=== PATIENT | male | born 1975 | race Two or more races ===

== ENCOUNTER 2024-06-08 16:13 | Inpatient (IN) | payer MEDICAID, SELFPAY ==
[2024-06-08 16:25] VITALS: BP 157/94; PULSE 107; RESP 16; TEMP 37.9; O2SAT 99; BMI 24.4
--- NOTE | 2024-06-08 16:32 | XR_ITS ---
Examination: CT abdomen and pelvis without contrast. Coronal 3-D reconstructions. Sagittal 2-D reconstructions. Date and time of exam:June 08, 2024 2036 hours Comparison March 27, 2015 INDICATION: Bilateral flank pain and dysuria beginning 2 days ago CTDI: vol (mGy): 6.30 DLP: (mGycm): 359 Technique: Axial images of the abdomen have been obtained, 3 mm slice thickness Intravenous contrast material has not been administered. Low dose protocols were performed. One or more of the following dose reduction techniques were used; automated exposure control, adjustment of the mA and/or KV according to patient size, use of iterative reconstruction technique. Findings: No focal liver or splenic lesions Gallbladder wall shows calcification No pancreatic or adrenal mass 1 to 3 mm lower pole left renal calculi Mild left hydronephrosis, bilateral perinephric stranding, wall thickening left ureter no ureteral calculi Normal appendix No bowel obstruction Diffuse mild thickening of the urinary bladder wall IMPRESSION: Findings most consistent with left pyelonephritis and cystitis
--- NOTE | 2024-06-08 16:32 | PD.EDRME ---
Rapid Medical Screening Exam RME Arrival date/time: 06/08/24 16:13 49-year-old male with no known medical history presents to the emergency room with a chief complaint of bilateral flank pain and dysuria x 2 days I have greeted and performed a focused initial assessment of this patient. A comprehensive ED assessment and evaluation of the patient, analysis of all test results, and completion of the medical decision making process will be conducted by additional ED providers. Chief Complaint: Back Pain/Injury Vital signs: Vital Signs Temperature 100.2 F 06/08/24 16:25 Pulse Rate 107 H 06/08/24 16:25 Respiratory Rate 16 06/08/24 16:25 Blood Pressure 157/94 H 06/08/24 16:25 Pulse Oximetry (%) 99 06/08/24 16:25 Oxygen Delivery Method Room Air 06/08/24 16:25 Vital signs reviewed by provider: Yes
[2024-06-08] MEDS: KETOROLAC INJ 60 MG/2 ML VIAL 30 MG IM (16:36)
[2024-06-08 16:54] LABS: Basophils # (Auto) 0.1 Thou/mm3 (0.0-0.2); Basophils % (Auto) 0 % (0-2.5); Eosinophils # (Auto) 0.1 Thou/mm3 (0.0-0.5); Eosinophils % (Auto) 0 % (0-10); Hematocrit 41.9 % (41.0-53.0); Hemoglobin 14.2 g/dL (13.5-16.0); Immature Granulocytes % (Auto) 1 % (0-0); Immature Granulocytes Auto 0.19 Thou/mm3 (0.00-0.00); Lymphocytes # (Auto) 3.8 Thou/mm3 (1.0-4.8); Lymphocytes % (Auto) 12 % (10-50); Mean Corpuscular HGB Conc 33.9 g/dl (31.0-37.0); Mean Corpuscular Hemoglobin 30.7 pg (25.0-35.0); Mean Corpuscular Volume 91 fL (80-100); Monocytes # (Auto) 2.3 Thou/mm3 (0.0-0.8); Monocytes % (Auto) 7 % (0-12); Neutrophils % (Auto) 80 % (37-80); Nucleated Red Blood Cell % 0 /100 WBC (0); Platelet Count 365 Thou/mm3 (140-440); RDW Standard Deviation 45.9 fL (35.1-43.9); Red Blood Count 4.62 Miln/mm3 (4.50-5.90); White Blood Count 32.5 Thou/mm3 (3.8-10.6)
[2024-06-08 17:09] LABS: Alanine Aminotransferase 14 U/L (10-49); Albumin, Serum 4.3 gm/dL (3.5-5.0); Albumin/Globulin Ratio 1.2 (1.2-2.2); Alkaline Phosphatase 126 U/L (46-116); Anion Gap 9 (7-16); Aspartate Amino Transferase 14 U/L (0-34); BUN/Creatinine Ratio 14 Ratio (12-20); Bilirubin,Total 0.7 mg/dL (0.3-1.2); Blood Urea Nitrogen 14 mg/dL (9-23); Calcium 9.1 mg/dL (8.3-10.6); Calcium (Corrected) 9.1 mg/dL (8.5-10.1); Carbon Dioxide 26.6 mMol/L (20.0-31.0); Chloride 98 mMol/L (98-107); Estimated Creatinine Clearance 90.3 mL/min (>60); Globulin 3.7 gm/dL (2.3-3.5); Glucose 130 mg/dL (74-106); Lipase 33 U/L (12-53); Osmolality,Calculated 270 (275-295); Potassium 3.6 mMol/L (3.4-5.1); Sodium 134 mMol/L (136-145); eGFR > 60 See Note
[2024-06-08 17:16] LABS: Collection Type, Urine Clean Catch; Squamous Epithelial Cell,Urine 0 /hpf (0-5)
[2024-06-08 17:25] LABS: Bacteria,Urine Rare; Bilirubin,Urine Negative (Negative); Blood,Urine 1+ (Negative); Clarity,Urine Turbid (Clear/Hazy); Color,Urine Yellow (Lt Yel-Yel); Glucose, Urine Negative (Negative); Ketones,Urine Negative (Negative); Leukocyte Esterase,Urine Positive (Negative); Nitrite,Urine Negative (Negative); Protein,Urine Trace (Neg - Trace); RBC,Urine 10 /hpf (0-3); Specific Gravity,Urine 1.018 (1.001-1.035); Urobilinogen,Urine Negative mg/dL (0.0-1.0); WBC,Urine 517 /hpf (0-5)
--- NOTE | 2024-06-08 18:14 | PD.EDABDPN ---
ED Abdominal Pain RME/HPI General Chief Complaint: Urogenital-Male Stated complaint: BILATERAL FLANK PAIN Time seen by provider: 06/08/24 18:13 Arrival date/time: 06/08/24 16:13 RME / HPI RME / HPI narrative: 06/08/24 16:13 49-year-old male with no known medical history presents to the emergency room with a chief complaint of bilateral flank pain and dysuria x 2 days I have greeted and performed a focused initial assessment of this patient. A comprehensive ED assessment and evaluation of the patient, analysis of all test results, and completion of the medical decision making process will be conducted by additional ED providers. This section includes all my notes and documentations, including HPI, PE, and ED course. Reji Dunlap MD HPI: 49-year-old male here with several days of severe left flank pain and dysuria. No hematuria. Concerned about obstructive kidney stones, frequent episodes in the past. No other medical history. No other complaints. ROS: All negative except as documented in HPI. Physical Exam: General: Alert and oriented. In severe pain. Eyes: Conjunctivae and lids clear. ENT: No nasal congestion. Neck: Supple. Heart: RRR. Lungs: No respiratory distress. Good air movement. No rhonchi, wheezing, rales. Abdomen: Soft and nontender. Normal bowel sounds. No distension. No rebound or guarding. Back: No CVA tenderness. Skin: Warm and dry. Neuro: Alert and oriented X 3. I reviewed all diagnostic test results. My interpretation of the chest x-ray is NAD. My review of the abdominal CT report is left pyelonephritis. Blood tests and urine tests remarkable for WBC 32.5, ESR 60, CRP > 10, and UTI. At this point, diagnoses include pyelonephritis and sepsis. Treatment here included IV fluid and Rocephin and Toradol and morphine. Some improvement noted. I discussed the case with our hospitalist. About the presentation and exam and diagnostics and treatments here. And need of further care in the hospital. Will accept the patient. Reji Dunlap MD Related Data Previous Rx's ?Medication ?Instructions ?Recorded Hydrocodone/Acetaminophen * (NORCO 1 tab PO Q6H PRN PAIN #28 tabs 03/27/15 7.5/325 *) Allergies Allergy/AdvReac Type Severity Reaction Status Date / Time No Known Allergies Allergy Verified 06/08/24 16:16 Course Quality Measures none Orders Category Date Time Status COVID-19 Screening Questionnaire NOW Care 06/08/24 21:37 Active Decision to Admit X1 Care 06/08/24 21:37 Active Saline [Insert IV] NOW Care 06/08/24 18:[address] abdomen pelvis wo con Stat Exams 06/08/24 16:32 Completed XR chest 1V portable Stat Exams 06/08/24 18:17 Completed Blood Culture (Lab) Stat Lab 06/08/24 18:28 Received CBC Stat Lab 06/08/24 16:47 Completed CMP [Comprehensive Metabolic Panel] Stat Lab 06/08/24 16:47 Completed CRP [C-Reactive Protein] Stat Lab 06/08/24 18:28 Completed ESR [Sed Rate (ESR)] Stat Lab 06/08/24 18:28 Completed Lactate (Lactic Acid) Stat Lab 06/08/24 18:28 Completed Lipase Stat Lab 06/08/24 16:47 Completed Magnesium Stat Lab 06/08/24 18:28 Completed Procalcitonin Stat Lab 06/08/24 18:28 Completed UA [Urinalysis] Stat Lab 06/08/24 16:45 Completed Urine Culture Stat Lab 06/08/24 16:45 Received Urine Culture Stat Lab 06/08/24 18:16 Ordered Ketorolac Inj [Toradol Inj] Med 06/08/24 16:32 Discontinued 30 mg IM X1 ONE Ketorolac Inj [Toradol Inj] Med 06/08/24 18:15 Discontinued 30 mg IVP X1 ONE Morphine Inj Med 06/08/24 18:15 Discontinued 4 mg IVP X1 ONE Sodium Chloride 0.9% 1000 ml [Ns] 1,000 ml Med 06/08/24 18:15 Discontinued IV 999 mls/hr Sodium Chloride 0.9% 1000 ml [Ns] 1,000 ml Med 06/08/24 18:15 Discontinued IV 999 mls/hr Sodium Chloride 0.9% 1000 ml [Ns] 1,000 ml Med 06/08/24 18:15 Discontinued IV 999 mls/hr cefTRIAXone [Rocephin] 1,000 mg Med 06/08/24 18:15 Discontinued SODIUM CHLORIDE 0.9% (Popper) [Ns 0.9% (P)] 50 ml IV X1 Vital Signs Vital signs: Vital Signs Temperature 100.2 F 06/08/24 16:25 Pulse Rate 107 H 06/08/24 16:25 Respiratory Rate 16 06/08/24 16:25 Blood Pressure 157/94 H 06/08/24 16:25 Pulse Oximetry (%) 99 06/08/24 16:25 Oxygen Delivery Method Room Air 06/08/24 16:25 Abdominal Pain MDM Patient data External records reviewed:: [facility] previous records Clinical information provided by:: patient Social determinants that could affect healthcare access:: none Patient has the following chronic illnesses:: Frequent obstructive kidney stones How is presenting disease/condition affected by chronic disease/condition?: exacerbated by Evaluation data The following diagnostics were reviewed and interpreted by me:: lab results and radiology exam(s) Lab and/or radiology exams considered but not ordered:: None Interpretation Summary: Pyelonephritis and sepsis Medications / Prescriptions Medications or Prescriptions considered but not ordered:: None Medication administrations:: Medication Administration History Discontinued Medications Sodium Chloride (Ns) 1,000 mls @ 999 mls/hr IV .Q1H1M ONE Stop: 06/08/24 19:15 Last Infusion: 06/08/24 20:40 Dose: Infused Documented By: Admin: 06/08/24 19:22 Dose: 999 mls/hr Documented By: TRAN Sodium Chloride (Ns) 1,000 mls @ 999 mls/hr IV .Q1H1M ONE Stop: 06/08/24 19:15 Last Infusion: 06/08/24 20:40 Dose: Infused Documented By: Admin: 06/08/24 19:24 Dose: 999 mls/hr Documented By: TRAN Ceftriaxone Sodium 1,000 mg/ (Sodium Chloride) 50 mls @ 100 mls/hr IV X1 ONE Stop: 06/08/24 18:44 Last Infusion: 06/08/24 20:00 Dose: Infused Documented By: Admin: 06/08/24 19:23 Dose: 100 mls/hr Documented By: TRAN Sodium Chloride (Ns) 1,000 mls @ 999 mls/hr IV .Q1H1M ONE Stop: 06/08/24 19:15 Last Infusion: 06/08/24 20:40 Dose: Infused Documented By: Admin: 06/08/24 19:25 Dose: 999 mls/hr Documented By: TRAN Ketorolac Tromethamine (Ketorolac Inj 60 Mg/2 Ml Vial) 30 mg IM X1 ONE Stop: 06/08/24 16:33 Last Admin: 06/08/24 16:36 Dose: 30 mg Documented By: ZACHERY Ketorolac Tromethamine (Ketorolac Inj 30 Mg/Ml Vial) 30 mg IVP X1 ONE Stop: 06/08/24 18:16 Last Admin: 06/08/24 19:24 Dose: 30 mg Documented By: TRAN Morphine Sulfate (Morphine Sulf Inj 10 Mg/Ml Vial) 4 mg IVP X1 ONE Stop: 06/08/24 18:16 Last Admin: 06/08/24 19:24 Dose: 4 mg Documented By: TRAN IV fluid and Toradol and morphine and Rocephin Consultations Consultation(s) initiated? (list below): No Diagnosis Differential diagnosis abdominal pain: acute appendicitis, calculus of kidney, constipation, diverticulitis, gastroenteritis, pancreatitis and small bowel obstruction Most likely diagnosis given after review of the tests above:: Pyelonephritis and sepsis Admission Indicated Admission indicated?: indicated Explain why admission is indicated or not indicated:: Pyelonephritis and sepsis Admission Request Was there a request for admission?: Yes Admission Attestation Admission request attestation: Discussed case with Hospitalist service regarding admission. Discussed patients ED course, exam findings, labs, and radiology results. The Hospitalist [agrees] to accept the patient for admission. Disposition Plan Disposition Plan: Admit Discharge Plan Plan Patient Disposition: Admit Acute Care w/in Hospital Prescriptions/Referrals Prescriptions/Med Rec: No Action Hydrocodone/Acetaminophen * (NORCO 7.5/325 *) 1 TAB tablet 1 tab PO Q6H PRN (Reason: PAIN) Qty: 28 0RF Referrals: No Primary/Family,Physician [Primary Care Provider] - In 1 week Problem List Clinical Impression: Acute pyelonephritis, Sepsis Patient/Caregiver Discharge Instructions Print Language: Persian Stand Alone Forms: Laura Award Info., Patient Portal Info Letter
--- NOTE | 2024-06-08 18:17 | XR_ITS ---
Examination: AP chest single view TECHNIQUE: AP portable upright chest single view Exam date and time: June 08, 2024 1829 hours INDICATIONS: Shortness of breath today. FINDINGS: Normal heart size. Lungs are clear. The osseous structures are intact IMPRESSION: No active disease
[2024-06-08 18:25] VITALS: BP 140/88; PULSE 94; RESP 18; TEMP 37.2; O2SAT 97
[2024-06-08 18:35] LABS: Lactate (Lactic Acid) 1.3 mMol/L (0.4-2.0)
[2024-06-08 18:43] LABS: Sed Rate (ESR) 60 mm/hr (0-15)
[2024-06-08] MEDS: SODIUM CHLORIDE 0.9% 1000 ML 1,000 ML 999 ML IV ×3 (19:22→19:25)
[2024-06-08] MEDS: cefTRIAXone 1,000 MG in SODIUM CHLORIDE 0.9% (Popper) 50 ML 100 MG IV (19:23)
[2024-06-08] MEDS: MORPHINE SULF INJ 10 MG/ML VIAL 4 MG IVP (19:24)
[2024-06-08] MEDS: KETOROLAC INJ 30 MG/ML VIAL IVP (19:24)
[2024-06-08 19:32] LABS: C-Reactive Protein > 10.0 mg/dL (0.0-0.9)
[2024-06-08 19:37] VITALS: BP 142/85; PULSE 84; RESP 16; O2SAT 98
[2024-06-08 19:56] LABS: Procalcitonin 0.24 ng/ml (0.0-0.49)
[2024-06-08 21:44] VITALS: BP 149/83; PULSE 89; RESP 18; TEMP 37.3; O2SAT 99
--- NOTE | 2024-06-08 22:49 | ESHP_ITS ---
Documentation for date of: 06/08/24 [facility] History of Present Illness History of present illness: The patient is a 49-year-old male with significant past medical history of renal stones and recent urinary tract infection who was treated with ciprofloxacin for 10 days course, presented to ED on 06/08/2024 with chief complaint of bilateral flank pain for 1 days. He reported that his right flank pain is radiating towards up to his inner thigh. Around 3 weeks back, he was admitted to [facility] and was found to have bilateral renal stones. He completed his 10 days course of ciprofloxacin, and continued to drink around 3 to 4 L of water daily. He admitted mild headache, and chills but denied any fever, nausea or vomiting, chest pain, SOB, abdominal pain, any changes in bowel habit or leg swelling. In the ED his vitals were significant for blood pressure 157/94, pulse 107, white count 32.5, ESR 60, sodium 134, blood sugar 130, CRP greater than 10.0, Pro-Jin 0.24, UA revealed turbid urine, 1+ blood, leukocyte esterase positive, RBC 10 and WBC 517 with rare urine bacteria. Chest x-ray revealed no active disease, abdomen/pelvis CT revealed 1 to 3 mm lower pole left renal calculi, mild left hydronephrosis, bilateral perinephric stranding, findings consistent with left pyelonephritis and cystitis. 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 Review of Systems Review of Systems Systems Reviewed: All systems reviewed, normal except as documented Exam Vital Signs Temp Pulse Resp BP Pulse Ox O2 Del Method 99.2 F 89 18 149/83 H 99 Room Air 06/08/24 21:44 06/08/24 21:44 06/08/24 21:44 06/08/24 21:44 06/08/24 21:44 06/08/24 21:44 Narrative Exam General: No acute distress, Alert and Oriented x 3 HEENT: Moist mucous membranes, oropharynx clear Neck: Supple, No masses, No JVD CVS: S1S2 Regular rate and rhythm, No murmurs, rubs or gallops Lungs: Clear to auscultation with no accessory use, no wheeze no rhonchi Abd: Soft, NT/ND, +BS, no organomegaly, bilateral renal angle tenderness present Ext: No edema, warm and well perfused Skin: No rash Psych: Appropriate mood and affect Results: Labs 06/08/24 16:47 06/08/24 16:47 Labs: Short CBC 06/08/24 Range/Units 16:47 WBC 32.5 H (3.8-10.6) Thou/mm3 Hgb 14.2 (13.5-16.0) g/dL Hct 41.9 (41.0-53.0) % Plt Count 365 (140-440) Thou/mm3 BMP 06/08/24 16:47 Sodium 134 L Potassium 3.6 Chloride 98 Carbon Dioxide 26.6 BUN 14 Creatinine 1.0 Glucose 130 H Calcium 9.1 Liver Function 06/08/24 Range/Units 16:47 Total Bilirubin 0.7 (0.3-1.2) mg/dL AST 14 (0-34) U/L ALT 14 (10-49) U/L Alkaline Phosphatase 126 H (46-116) U/L Albumin 4.3 (3.5-5.0) gm/dL Urine 06/08/24 Range/Units 16:45 Urine Color Yellow (Lt Yel-Yel) Urine Clarity Turbid A (Clear/Hazy) Urine pH 6.0 (5.0-7.0) Ur Specific [place] 1.018 (1.001-1.035) Urine Protein Trace (Neg - Trace) Urine Glucose (UA) Negative (Negative) Quality Measures Quality Measures none Medications Home Medications and Allergies Allergies Allergy/AdvReac Type Severity Reaction Status Date / Time No Known Allergies Allergy Verified 06/08/24 16:16 Visit Medications Acetaminophen (Acetaminophen 325 Mg Tablet) 650 mg PO Q6H PRN PRN Reason: Fever >101.5 Stop: 07/08/24 22:38 Hydrocodone Bitart/Acetaminophen (Hydrocodone/Apap 5/325 Tablet) 1 tab PO Q4HR PRN PRN Reason: PAIN SCALE 4-6 (Moderate Stop: 06/13/24 22:38 Enoxaparin Sodium (Enoxaparin Sod Inj 40 Mg/0.4 Ml Syringe) 40 mg SC QDAY [facility] Stop: 06/23/24 08:59 Hydromorphone HCl (Hydromorphone Inj 2 Mg/Ml Vial) 0.5 mg IVP Q4H PRN PRN Reason: PAIN SCALE 7-10 (Severe Stop: 06/13/24 22:38 Sodium Chloride (Ns) 1,000 mls @ 75 mls/hr IV .[id number] AMADO Stop: 07/08/24 22:44 Ceftriaxone Sodium/Dextrose (Rocephin/D5w 1gm Iv Premix) 50 mls @ 100 mls/hr IV QDAY [facility] Stop: 06/15/24 22:46 Discontinued Medications Sodium Chloride (Ns) 1,000 mls @ 999 mls/hr IV .Q1H1M ONE Stop: 06/08/24 19:15 Last Infusion: 06/08/24 20:40 Dose: Infused Sodium Chloride (Ns) 1,000 mls @ 999 mls/hr IV .Q1H1M ONE Stop: 06/08/24 19:15 Last Infusion: 06/08/24 20:40 Dose: Infused Ceftriaxone Sodium 1,000 mg/ (Sodium Chloride) 50 mls @ 100 mls/hr IV X1 ONE Stop: 06/08/24 18:44 Last Infusion: 06/08/24 20:00 Dose: Infused Sodium Chloride (Ns) 1,000 mls @ 999 mls/hr IV .Q1H1M ONE Stop: 06/08/24 19:15 Last Infusion: 06/08/24 20:40 Dose: Infused Ketorolac Tromethamine (Ketorolac Inj 60 Mg/2 Ml Vial) 30 mg IM X1 ONE Stop: 06/08/24 16:33 Last Admin: 06/08/24 16:36 Dose: 30 mg Ketorolac Tromethamine (Ketorolac Inj 30 Mg/Ml Vial) 30 mg IVP X1 ONE Stop: 06/08/24 18:16 Last Admin: 06/08/24 19:24 Dose: 30 mg Morphine Sulfate (Morphine Sulf Inj 10 Mg/Ml Vial) 4 mg IVP X1 ONE Stop: 06/08/24 18:16 Last Admin: 06/08/24 19:24 Dose: 4 mg Assessment & Plan Plan The patient is a 49-year-old male with significant past medical history of renal stones and recent urinary tract infection who was treated with ciprofloxacin for 10 days course, presented to ED on 06/08/2024 with chief complaint of bilateral flank pain for 1 days and was admitted to [facility] telemetry unit for further management of sepsis secondary to complicated UTI. #Sepsis secondary to complicated UTI 2/2 #Left pyelonephritis and #Cystitis #Left renal calculi Met 2/4 SIRS criteria with tachycardia and elevated white count Patient presented with chief complaint of bilateral flank pain for 1 day, right flank pain was radiating towards his inner right thigh. Around 3 weeks back, he was admitted to [facility] and was found to have bilateral renal stones. He completed his 10 days course of ciprofloxacin, and continued to drink around 3 to 4 L of water daily. pulse 107, white count 32.5, ESR 60, sodium 134, blood sugar 130, CRP greater than 10.0, Pro-Jin 0.24, UA revealed turbid urine, 1+ blood, leukocyte esterase positive, RBC 10 and WBC 517 with rare urine bacteria. Chest x-ray revealed no active disease, abdomen/pelvis CT revealed 1 to 3 mm lower pole left renal calculi, mild left hydronephrosis, bilateral perinephric stranding, findings consistent with left pyelonephritis and cystitis. In the ED patient received 3 L of IV bolus fluid normal saline, received ketorolac 30 Mg IM x 1 and 30 Mg IV x 1, morphine 4 Mg IV x 1 and ceftriaxone 1 g IV x 1 -Continue with ceftriaxone 1 g daily -Pain management -Blood and urine culture ordered -Daily a.m. labs for CBC, CMP and electrolytes -Tamsulosin 0.4 Mg daily p.o. - Monitor closely #Mild hypovolemic hypoosmolar hyponatremia Secondary to sepsis Patient presented with sodium level of 134 and osmolality 270 Patient received a liter of IV bolus fluid normal saline, and is on maintenance IV normal saline - Continue with maintenance IV normal saline 75 cc/h - A.m. labs for sodium Health maintenance: Dispo: Patient admitted to med telemetry unit for further management of sepsis secondary to complicated UTI secondary to left pyelonephritis and cystitis DVT prophylaxis: Enoxaparin subcu daily Diet: Regular diet CODE STATUS: Full code The patient's management plan was discussed with my attending physician MD Juan Roberts MD, PGY2 Attending Provider Attestation/Addendum 49-year-old male patient with kidney stones was admitted for bilateral flank pain. Patient had recent use of antibiotic for UTI. He appears to have pyelonephritis. Patient will be admitted for IV antibiotic treatment. Will need to check culture results. The patient has nonobstructing kidney stones.
[2024-06-08] MEDS: SODIUM CHLORIDE 0.9% 1000 ML 1,000 ML 75 ML IV (22:50)
[2024-06-08 23:49] VITALS: BMI 25.8
[2024-06-09] VITALS (13 sets, daily range): BP systolic 103–140; BP diastolic 62–75; PULSE 90–113; RESP 18–20; TEMP 36.3–39; O2SAT 92–97
[2024-06-09] MEDS: TAMSULOSIN HCL 0.4 MG CAPSULE PO ×2 (00:19→08:34)
[2024-06-09] MEDS: ACETAMINOPHEN 325 MG TABLET 650 MG PO ×3 (04:25→20:40)
[2024-06-09 05:05] LABS: Basophils # (Auto) 0.1 Thou/mm3 (0.0-0.2); Basophils % (Auto) 0 % (0-2.5); Eosinophils % (Auto) 0 % (0-10); Immature Granulocytes % (Auto) 1 % (0-0); Immature Granulocytes Auto 0.21 Thou/mm3 (0.00-0.00); Lymphocytes # (Auto) 2.5 Thou/mm3 (1.0-4.8); Lymphocytes % (Auto) 7 % (10-50); Mean Corpuscular HGB Conc 33.3 g/dl (31.0-37.0); Mean Corpuscular Hemoglobin 30.5 pg (25.0-35.0); Mean Corpuscular Volume 92 fL (80-100); Monocytes # (Auto) 2.5 Thou/mm3 (0.0-0.8); Monocytes % (Auto) 7 % (0-12); Neutrophils # (Auto) 30.3 Thou/mm3 (1.8-7.7); Neutrophils % (Auto) 85 % (37-80); Nucleated Red Blood Cell % 0 /100 WBC (0); Platelet Count 319 Thou/mm3 (140-440); RDW Standard Deviation 45.8 fL (35.1-43.9); Red Blood Count 3.93 Miln/mm3 (4.50-5.90)
[2024-06-09 05:14] LABS: White Blood Count 35.6 Thou/mm3 (3.8-10.6)
[2024-06-09] MEDS: MEROPENEM INJ 1,000 MG in SODIUM CHLORIDE 0.9% (Popper) 50 ML 100 MG IV ×3 (05:28→21:55)
[2024-06-09 05:43] LABS: Alanine Aminotransferase 31 U/L (10-49); Albumin, Serum 3.5 gm/dL (3.5-5.0); Albumin/Globulin Ratio 1.1 (1.2-2.2); Alkaline Phosphatase 111 U/L (46-116); Anion Gap 10 (7-16); Aspartate Amino Transferase 29 U/L (0-34); BUN/Creatinine Ratio 13 Ratio (12-20); Bilirubin,Total 0.8 mg/dL (0.3-1.2); Blood Urea Nitrogen 13 mg/dL (9-23); Calcium 7.9 mg/dL (8.3-10.6); Calcium (Corrected) 8.3 mg/dL (8.5-10.1); Carbon Dioxide 21.8 mMol/L (20.0-31.0); Cardiac Risk Estimate 3.4 RATIO (4.0-6.7); Chloride 102 mMol/L (98-107); Cholesterol 141 mg/dL (132-200); Estimated Creatinine Clearance 90.3 mL/min (>60); Globulin 3.1 gm/dL (2.3-3.5); Glucose 117 mg/dL (74-106); HDL Cholesterol 42 mg/dL (40-60); LDL Cholesterol,Calculated 85 mg/dL (0-130); Magnesium 1.6 mg/dL (1.6-2.6); Osmolality,Calculated 269 (275-295); Phosphorous 1.2 mg/dL (2.4-5.1); Potassium 3.9 mMol/L (3.4-5.1); Sodium 134 mMol/L (136-145); Thyroid Stimulating Hormone 0.53 uIU/mL (0.55-4.78); Total Protein 6.6 gm/dL (5.7-8.2); Triglycerides 71 mg/dL (30-150); eGFR > 60 See Note
[2024-06-09] MEDS: ENOXAPARIN SOD INJ 40 MG/0.4 ML SYRINGE SC (08:34)
[2024-06-09 09:00] LABS: Path Review Blood Smear Sent to Pathologist
--- NOTE | 2024-06-09 09:56 | PC.SS ---
Follow up note: Pt is on IV antibiotic for Sepsis, UTI.
--- NOTE | 2024-06-09 10:36 | PD.IDPROG ---
Subjective Subjective Interval history: asked to see for pos urine after rx for a day or so. now on merrem. bc pending. urine pending. ua abnormal but not initially tested. has known stones. urology assistance not usually available in most facilities. Exam Vital Signs Temp Pulse Resp BP Pulse Ox O2 Del Method 97.4 F 90 18 103/62 97 Room Air 06/09/24 08:00 06/09/24 08:00 06/09/24 08:00 06/09/24 08:00 06/09/24 08:00 06/09/24 08:00 Narrative Exam heavily tatooed man. looks ill. germ is not S to quinolones but that is what he got. I called [facility] and note that his test was finalized there on 05/28. he does not recall seeing me. Objective - Internal Medicine Labs 06/09/24 04:42 06/09/24 04:42 Labs: Laboratory Results - last 24 hr 06/08/24 06/08/24 06/08/24 16:45 16:47 18:28 WBC 32.5 H RBC 4.62 Hgb 14.2 Hct 41.9 MCV 91 MCH 30.7 MCHC 33.9 RDW Std Deviation 45.9 H Plt Count 365 Neut % (Auto) 80 Lymph % (Auto) 12 [place] % (Auto) 7 Eos % (Auto) 0 Baso % (Auto) 0 Neut # (Auto) 26.0 H Lymph # (Auto) 3.8 [place] # (Auto) 2.3 H Eos # (Auto) 0.1 Baso # (Auto) 0.1 Immature Gran # (Auto) 0.19 H Absolute Nucleated RBC 0.00 Immature Gran % 1 H Nucleated RBC % 0 Smear Path Review ESR 60 H Sodium 134 L Potassium 3.6 Chloride 98 Carbon Dioxide 26.6 Anion Gap 9 BUN 14 Creatinine 1.0 Estim Creat Clear Calc 90.3 eGFR > 60 BUN/Creatinine Ratio 14 Glucose 130 H Calculated Osmolality 270 L Lactic Acid 1.3 Calcium 9.1 Corrected Calcium 9.1 Phosphorus Magnesium 2.0 Total Bilirubin 0.7 AST 14 ALT 14 Alkaline Phosphatase 126 H C-Reactive Prot, Quant > 10.0 H Total Protein 8.0 Albumin 4.3 Globulin 3.7 H Albumin/Globulin Ratio 1.2 Triglycerides Cholesterol LDL Cholesterol, Calc HDL Cholesterol Cholesterol/HDL Ratio Lipase 33 Procalcitonin 0.24 TSH Ur Collection Type Clean Catch Urine Color Yellow Urine Clarity Turbid A Urine pH 6.0 Ur Specific [place] 1.018 Urine Protein Trace Urine Glucose (UA) Negative Urine Ketones Negative Urine Blood 1+ A Urine Nitrite Negative Urine Bilirubin Negative Urine Urobilinogen (Auto) Negative Ur Leukocyte Esterase Positive Urine RBC 10 H Urine WBC 517 H Ur Squamous Epith Cells 0 Urine Bacteria Rare 06/09/24 04:42 WBC 35.6 H* RBC 3.93 L Hgb 12.0 L D Hct 36.0 L MCV 92 MCH 30.5 MCHC 33.3 RDW Std Deviation 45.8 H Plt Count 319 D Neut % (Auto) 85 H Lymph % (Auto) 7 L [place] % (Auto) 7 Eos % (Auto) 0 Baso % (Auto) 0 Neut # (Auto) 30.3 H Lymph # (Auto) 2.5 [place] # (Auto) 2.5 H Eos # (Auto) 0.0 Baso # (Auto) 0.1 Immature Gran # (Auto) 0.21 H Absolute Nucleated RBC 0.00 Immature Gran % 1 H Nucleated RBC % 0 Smear Path Review Sent to Pathologist ESR Sodium 134 L Potassium 3.9 Chloride 102 Carbon Dioxide 21.8 Anion Gap 10 BUN 13 Creatinine 1.0 Estim Creat Clear Calc 90.3 eGFR > 60 BUN/Creatinine Ratio 13 Glucose 117 H Calculated Osmolality 269 L Lactic Acid Calcium 7.9 L Corrected Calcium 8.3 L Phosphorus 1.2 L Magnesium 1.6 Total Bilirubin 0.8 AST 29 ALT 31 Alkaline Phosphatase 111 C-Reactive Prot, Quant Total Protein 6.6 Albumin 3.5 D Globulin 3.1 Albumin/Globulin Ratio 1.1 L Triglycerides 71 Cholesterol 141 LDL Cholesterol, Calc 85 HDL Cholesterol 42 Cholesterol/HDL Ratio 3.4 L Lipase Procalcitonin TSH 0.53 L Ur Collection Type Urine Color Urine Clarity Urine pH Ur Specific [place] Urine Protein Urine Glucose (UA) Urine Ketones Urine Blood Urine Nitrite Urine Bilirubin Urine Urobilinogen (Auto) Ur Leukocyte Esterase Urine RBC Urine WBC Ur Squamous Epith Cells Urine Bacteria Assessment & Plan A&P Narrative uti with fever and sx after recent rx at . hx of prior R germ in urine known renal stone disease meth use hx await cx. note that urine may be neg if pre treated. will f/u on sun Time Spent With Patient Time: Total time spent is greater than 50% in coordination of care (as documented) at patient's floor/unit and/or counseling patient:
[2024-06-09] MEDS: SODIUM CHLORIDE 0.9% 1000 ML 1,000 ML 75 ML IV (10:56)
--- NOTE | 2024-06-09 12:58 | ESCONSULT_ITS ---
RE: RENEE ALFARO : 1975 DATE OF CONSULTATION: 06/09/2024 REASON FOR CONSULTATION: UTI. HISTORY OF PRESENT ILLNESS: The patient is an unfortunate 49-year-old man. He was recently released from the [facility] on quinolone for an ESBL in the urine that turned out to be resistant to quinolones. It was finalized on approximately 05/28/2024. He was discharged from the hospital apparently prior to that. He apparently finished the Cipro and reports that he did not get that much better on it and there was no chronic treatment offered. His blood cultures are negative, and I called the lab to verify that. Surgical history is none. He has known about the kidney stones for a couple of months and imaging shows presence of known kidney stones. He is on meropenem, which is part of the reason for the consultation. White counts are rather high. There is mild left hydronephrosis with a stone in theleft lower pole, left renal calculus noted. The patient reportedly saw a urologist at [facility], he does no know the detail, so he cannot recall the name of the urologist. ALLERGIES: NONE NOTED. IMMUNIZATIONS: Notable for; tetanus is unknown. fluc status also unknown and uncertain. He has not had a COVID vaccine or pneumococcal vaccine. FAMILY HISTORY: Positive for mother having known stones, hypertension, and diabetes. SOCIAL HISTORY: He lives with his female friend. He uses occasional meth. 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 He is not working currently. He does smoke regularly also. He uses occasional alcohol as well. His last use of meth was about a week ago. PHYSICAL EXAMINATION: GENERAL: The patient is ill-appearing. He is in no distress, but he is uncomfortable. He is heavily tattooed. HEENT: Benign. HEART: Benign. LUNGS: Benign. ABDOMEN: Benign. ASSESSMENT: 1. Urinary tract infection, treated with quinolone, reportedly resistance to quinolone was reportedly identified at [facility]. I had not seen him before. I am not sure if Dr. Hubbard saw him or not. 2. Known kidney stone disease. RECOMMENDATIONS: 1. The patient probably should stay on meropenem for now. 2. We will look at alternatives once we have more sensitivities available. 3. If his blood cultures are positive, we may have to give him something systemically for a period of time, but if we have sensitivity to an oral agent, we may look at that on a long-term basis, preventively. DT: 11:15:03 TT: 11:57:00 Ref: [id number] - TID: [id number] MTDD
--- NOTE | 2024-06-09 13:10 | PC.NURSE ---
Patients temperature 97.9. Will continue to monitor
--- NOTE | 2024-06-09 15:40 | PD.RESPRO ---
Documentation for date of: 06/09/24 Subjective Subjective Interval history: Patient examined at bedside. Still has some lower back pain but improved from yesterday. No nausea, no blood in urine. Dr Child was consulted. Recommendations to continue with meropenem due to resistance to fluoroquinolone reported at [facility]. Leukocytosis 35, sodium 134, potassium 3.9, phosphate 1.2. Repleted electrolytes as needed. Urine cultures and blood cultures pending. Exam Vital Signs Temp Pulse Resp BP Pulse Ox O2 Del Method 97.4 F 95 18 140/75 H 97 Room Air 06/09/24 15:36 06/09/24 15:36 06/09/24 15:36 06/09/24 15:36 06/09/24 15:36 06/09/24 12:00 Narrative Exam General: No acute distress, Alert and Oriented x 3 HEENT: Moist mucous membranes, oropharynx clear Neck: Supple, No masses, No JVD CVS: S1S2 Regular rate and rhythm, No murmurs, rubs or gallops Lungs: Clear to auscultation with no accessory use, no wheeze no rhonchi Abd: Soft, NT/ND, +BS, no organomegaly, bilateral CVA tenderness present Ext: No edema, warm and well perfused Skin: No rash, tattoos on arm Psych: Appropriate mood and affect Objective Labs 06/10/24 04:20 06/10/24 04:20 Labs: Laboratory Results - last 24 hr 06/08/24 06/08/24 06/08/24 16:45 16:47 18:28 WBC 32.5 H RBC 4.62 Hgb 14.2 Hct 41.9 MCV 91 MCH 30.7 MCHC 33.9 RDW Std Deviation 45.9 H Plt Count 365 Neut % (Auto) 80 Lymph % (Auto) 12 [place] % (Auto) 7 Eos % (Auto) 0 Baso % (Auto) 0 Neut # (Auto) 26.0 H Lymph # (Auto) 3.8 [place] # (Auto) 2.3 H Eos # (Auto) 0.1 Baso # (Auto) 0.1 Immature Gran # (Auto) 0.19 H Absolute Nucleated RBC 0.00 Immature Gran % 1 H Nucleated RBC % 0 Smear Path Review ESR 60 H Sodium 134 L Potassium 3.6 Chloride 98 Carbon Dioxide 26.6 Anion Gap 9 BUN 14 Creatinine 1.0 Estim Creat Clear Calc 90.3 eGFR > 60 BUN/Creatinine Ratio 14 Glucose 130 H Calculated Osmolality 270 L Lactic Acid 1.3 Calcium 9.1 Corrected Calcium 9.1 Phosphorus Magnesium 2.0 Total Bilirubin 0.7 AST 14 ALT 14 Alkaline Phosphatase 126 H C-Reactive Prot, Quant > 10.0 H Total Protein 8.0 Albumin 4.3 Globulin 3.7 H Albumin/Globulin Ratio 1.2 Triglycerides Cholesterol LDL Cholesterol, Calc HDL Cholesterol Cholesterol/HDL Ratio Lipase 33 Procalcitonin 0.24 TSH Ur Collection Type Clean Catch Urine Color Yellow Urine Clarity Turbid A Urine pH 6.0 Ur Specific [place] 1.018 Urine Protein Trace Urine Glucose (UA) Negative Urine Ketones Negative Urine Blood 1+ A Urine Nitrite Negative Urine Bilirubin Negative Urine Urobilinogen (Auto) Negative Ur Leukocyte Esterase Positive Urine RBC 10 H Urine WBC 517 H Ur Squamous Epith Cells 0 Urine Bacteria Rare 06/09/24 04:42 WBC 35.6 H* RBC 3.93 L Hgb 12.0 L D Hct 36.0 L MCV 92 MCH 30.5 MCHC 33.3 RDW Std Deviation 45.8 H Plt Count 319 D Neut % (Auto) 85 H Lymph % (Auto) 7 L [place] % (Auto) 7 Eos % (Auto) 0 Baso % (Auto) 0 Neut # (Auto) 30.3 H Lymph # (Auto) 2.5 [place] # (Auto) 2.5 H Eos # (Auto) 0.0 Baso # (Auto) 0.1 Immature Gran # (Auto) 0.21 H Absolute Nucleated RBC 0.00 Immature Gran % 1 H Nucleated RBC % 0 Smear Path Review Sent to Pathologist ESR Sodium 134 L Potassium 3.9 Chloride 102 Carbon Dioxide 21.8 Anion Gap 10 BUN 13 Creatinine 1.0 Estim Creat Clear Calc 90.3 eGFR > 60 BUN/Creatinine Ratio 13 Glucose 117 H Calculated Osmolality 269 L Lactic Acid Calcium 7.9 L Corrected Calcium 8.3 L Phosphorus 1.2 L Magnesium 1.6 Total Bilirubin 0.8 AST 29 ALT 31 Alkaline Phosphatase 111 C-Reactive Prot, Quant Total Protein 6.6 Albumin 3.5 D Globulin 3.1 Albumin/Globulin Ratio 1.1 L Triglycerides 71 Cholesterol 141 LDL Cholesterol, Calc 85 HDL Cholesterol 42 Cholesterol/HDL Ratio 3.4 L Lipase Procalcitonin TSH 0.53 L Ur Collection Type Urine Color Urine Clarity Urine pH Ur Specific [place] Urine Protein Urine Glucose (UA) Urine Ketones Urine Blood Urine Nitrite Urine Bilirubin Urine Urobilinogen (Auto) Ur Leukocyte Esterase Urine RBC Urine WBC Ur Squamous Epith Cells Urine Bacteria Quality Measures Quality Measures none Assessment & Plan Assessment Current Active Medications: Generic Name Dose Route Start Last Admin Trade Name Freq PRN Reason Stop Dose Admin Acetaminophen 650 mg 06/09/24 11:02 06/09/24 11:15 Acetaminophen 325 Mg Tablet PO 07/08/24 22:38 650 mg Q6H PRN Administration Fever 100.4 F or above Hydrocodone Bitart/Acetaminophen 1 tab 06/08/24 22:39 Hydrocodone/Apap 5/325 Tablet PO 06/13/24 22:38 Q4HR PRN PAIN SCALE 4-6 (Moderate Enoxaparin Sodium 40 mg 06/09/24 09:00 06/09/24 08:34 Enoxaparin Sod Inj 40 Mg/0.4 Ml Syringe SC 06/23/24 08:59 40 mg QDAY AMADO Administration Hydromorphone HCl 0.5 mg 06/08/24 22:39 Hydromorphone Inj 2 Mg/Ml Vial IVP 06/13/24 22:38 Q4H PRN PAIN SCALE 7-10 (Severe Sodium Chloride 1,000 mls @ 75 mls/hr 06/08/24 22:45 06/09/24 10:56 Ns IV 07/08/24 22:44 75 mls/hr .[id number] AMADO Administration Meropenem 1,000 mg/ Sodium 50 mls @ 100 mls/hr 06/09/24 06:00 06/09/24 13:11 Chloride IV 06/16/24 05:59 100 mls/hr Q8HR AMADO Administration Tamsulosin HCl 0.4 mg 06/09/24 09:00 06/09/24 08:34 Tamsulosin Hcl 0.4 Mg Capsule PO 07/09/24 08:59 0.4 mg QDAY AMADO Administration Plan The patient is a 49-year-old male with significant past medical history of renal stones and recent urinary tract infection who was treated with ciprofloxacin for 10 days course, presented to ED on 06/08/2024 with chief complaint of bilateral flank pain for 1 days and was admitted to [facility] telemetry unit for further management of sepsis secondary to complicated UTI. #Complicated UTI #Left pyelonephritis #Left renal calculi Patient came in and found to have 2 or more SIRS criteria and was evaluated for sepsis. However, based upon further work-up, sepsis was ruled out as he showed no evidence of end organ damage. Met 2/4 SIRS criteria with tachycardia and leukocytosis 35. ESR 60, CRP greater than 10.0, Pro-Jin 0.24, UA revealed turbid urine, 1+ blood, leukocyte esterase positive, RBC 10 and WBC 517 with rare urine bacteria. Chest x-ray revealed no active disease, abdomen/pelvis CT revealed 1 to 3 mm lower pole left renal calculi, mild left hydronephrosis, bilateral perinephric stranding, findings consistent with left pyelonephritis and cystitis. ID Dr. Child consulted -Continue with meropenam due to resistance to fluoroquinolone reported at [facility]. -Pain management -Blood and urine culture pending -Tamsulosin 0.4 Mg daily p.o. #Electrolyte abnormalities # Hypophosphatemia -Replete as needed Health maintenance: Dispo: meropenam for left pyelonephritis DVT prophylaxis: Enoxaparin subcu daily Diet: Regular diet CODE STATUS: Full code The patient's management plan was discussed with my attending physician Dr. Young. Deirdre Mora, PGY-1 Attending Provider Attestation/Addendum I reviewed labs, imaging, EKG, home medications and prior available records. Face to face evaluation was performed by me. I have personally examined the patient and discussed assessment and plan with the IM team. I reviewed the resident note and agree with the plan with exceptions as below. Flank pain Sepsis Acute left pyelonephritis Methamphetamine abuse He has recent admission for UTI Monitor WBC: Uptrending Started meropenem Consulted ID Follow-up blood and urine cultures: Blood cultures growing gram-negative rods Continue IV fluids
--- NOTE | 2024-06-09 16:12 | PC.SS ---
SS met with patient regarding his d/c plan.? Pt is alert/oriented.? Pt was admitted for BL Flank Pain.? Patient's correct address is: [address] [place] [address] [address]. Pt resides with friend.? Pt ambulates independently without assistance or DME.? Pt is ok with all ADLs.? Patient?s pharmacy of choice is [facility] .? Pt named his friend, Susan Lu medical decision maker if he is unable.? Patient?s choice is to return home upon d/c.? Pt does not have an advance directive, SS offered, and pt was receptive.? Pt states not diabetic and is not on dialysis.? Pt states he followed up with PCP 2 weeks ago. D/C plan:? Return home Next of Kin:? Susan Lu, friend, phone# [phone] PCP:? [facility]? Address:? [address] [place] [address] [id number] [facility] [id number]
--- NOTE | 2024-06-09 16:22 | PC.NURSE ---
Lab just called Blood cultures growing gram negative rods. Notified Dr. Fung.
[2024-06-09] MEDS: NAPH,KPH MBDB 1 PACKET (1.5 GM) PO (17:39)
[2024-06-09] MEDS: HYDROmorphone INJ 2 MG/ML VIAL 0.5 MG IVP (20:25)
--- NOTE | 2024-06-09 22:03 | PC.NURSE ---
Addendum entered by Juani Seymour RN 06/09/24 22:52: oral temp rechecked went down to 99 F after cooling measures Original Note: Patient's temperature was 101.3 F after giving tylenol 650mg. Patient denies any chills, skin warm to touch. Cooling measures done, tipid sponge bath done.
[2024-06-10] VITALS: BP 124/65; PULSE 93; RESP 20; TEMP 36.9; O2SAT 95
[2024-06-10] MEDS: HYDROmorphone INJ 2 MG/ML VIAL 0.5 MG IVP ×3 (03:08→21:13)
[2024-06-10] MEDS: SODIUM CHLORIDE 0.9% 1000 ML 1,000 ML 75 ML IV ×2 (03:09→15:52)
[2024-06-10 04:00] VITALS: BP 127/67; PULSE 100; PULSE 101; RESP 20; TEMP 37.4; O2SAT 94
[2024-06-10 05:24] LABS: Basophils # (Auto) 0.1 Thou/mm3 (0.0-0.2); Basophils % (Auto) 0 % (0-2.5); Eosinophils % (Auto) 0 % (0-10); Hemoglobin 11.8 g/dL (13.5-16.0); Immature Granulocytes % (Auto) 1 % (0-0); Immature Granulocytes Auto 0.41 Thou/mm3 (0.00-0.00); Lymphocytes # (Auto) 2.4 Thou/mm3 (1.0-4.8); Lymphocytes % (Auto) 8 % (10-50); Mean Corpuscular HGB Conc 32.8 g/dl (31.0-37.0); Mean Corpuscular Hemoglobin 30.4 pg (25.0-35.0); Mean Corpuscular Volume 93 fL (80-100); Monocytes # (Auto) 2.8 Thou/mm3 (0.0-0.8); Monocytes % (Auto) 9 % (0-12); Neutrophils # (Auto) 23.7 Thou/mm3 (1.8-7.7); Neutrophils % (Auto) 81 % (37-80); Nucleated Red Blood Cell % 0 /100 WBC (0); Platelet Count 280 Thou/mm3 (140-440); RDW Standard Deviation 45.8 fL (35.1-43.9); Red Blood Count 3.88 Miln/mm3 (4.50-5.90); White Blood Count 29.3 Thou/mm3 (3.8-10.6)
[2024-06-10] MEDS: MEROPENEM INJ 1,000 MG in SODIUM CHLORIDE 0.9% (Popper) 50 ML 100 MG IV ×3 (05:27→21:57)
[2024-06-10 05:50] LABS: Alanine Aminotransferase 27 U/L (10-49); Albumin, Serum 3.6 gm/dL (3.5-5.0); Albumin/Globulin Ratio 1.2 (1.2-2.2); Alkaline Phosphatase 124 U/L (46-116); Anion Gap 9 (7-16); Aspartate Amino Transferase 20 U/L (0-34); BUN/Creatinine Ratio 10 Ratio (12-20); Bilirubin,Total 0.8 mg/dL (0.3-1.2); Blood Urea Nitrogen 8 mg/dL (9-23); Calcium (Corrected) 8.3 mg/dL (8.5-10.1); Carbon Dioxide 25.2 mMol/L (20.0-31.0); Chloride 104 mMol/L (98-107); Creatinine (Component) 0.8 mg/dL (0.6-1.3); Estimated Creatinine Clearance 112.9 mL/min (>60); Glucose 134 mg/dL (74-106); Magnesium 1.9 mg/dL (1.6-2.6); Osmolality,Calculated 275 (275-295); Phosphorous 1.9 mg/dL (2.4-5.1); Potassium 3.3 mMol/L (3.4-5.1); Sodium 138 mMol/L (136-145); Total Protein 6.6 gm/dL (5.7-8.2); eGFR > 60 See Note
[2024-06-10 08:00] VITALS: BP 120/66; PULSE 92; PULSE 96; RESP 18; TEMP 36.7; O2SAT 94
[2024-06-10] MEDS: ENOXAPARIN SOD INJ 40 MG/0.4 ML SYRINGE SC (08:55)
[2024-06-10] MEDS: TAMSULOSIN HCL 0.4 MG CAPSULE PO (08:56)
[2024-06-10] MEDS: POTASSIUM CHLORIDE 20 mEq TABCR 40 MEQ PO (10:41)
[2024-06-10] MEDS: NAPH,KPH MBDB 1 PACKET (1.5 GM) PO (10:41)
[2024-06-10 12:00] VITALS: BP 124/79; PULSE 92; PULSE 98; RESP 18; TEMP 36.6; O2SAT 94
--- NOTE | 2024-06-10 12:50 | EKG_ITS ---
[facility] Test Date: 2024-06-11 Pat Name: RENEE ALFARO [facility] Cloth Worker: ETIENNE : 1975 Requested By: Lauro Kearney Order Number: [id number] Reading MD: Lauro Kearney Measurements Intervals [place] Rate: 84 P: -63 CO: 138 QRS: 45 QRSD: 94 T: 39 QT: 356 QTc: 422 Interpretive Statements JUNCTIONAL RHYTHM ABNORMAL RHYTHM ECG Compared to ECG 06/11/2024 02:12:21 Junctional rhythm now present Ectopic atrial rhythm no longer present /store/S0/[id number]/[id number].pdf
[2024-06-10] MEDS: HYDROcodone/APAP 5/325 TABLET 1 TAB PO ×2 (15:54→23:59)
[2024-06-10 16:00] VITALS: BP 131/81; PULSE 85; PULSE 87; RESP 17; TEMP 38; O2SAT 97
--- NOTE | 2024-06-10 16:07 | ESPR_ITS ---
Documentation for date of: 06/10/24 Subjective Subjective Interval history: Patient examined at bedside. No overnight events. He complains of b/l low back pain. No nausea. Leukocytosis improving to 29 in setting of his pyelonephritis. Cr downtrended to 0.8 Continue IV meropenem for ESBL E. coli UTI. Blood cultures 1 of 2 positive for GNR. Follow-up with blood cultures. Exam Vital Signs Temp Pulse Resp BP Pulse Ox O2 Del Method 97.8 F 98 18 124/79 94 L Room Air 06/10/24 12:00 06/10/24 12:00 06/10/24 12:00 06/10/24 12:00 06/10/24 12:00 06/10/24 12:00 Narrative Exam General: No acute distress, Alert and Oriented x 3 HEENT: Moist mucous membranes, oropharynx clear Neck: Supple, No masses, No JVD CVS: S1S2 Regular rate and rhythm, No murmurs, rubs or gallops Lungs: Clear to auscultation with no accessory use, no wheeze no rhonchi Abd: Soft, NT/ND, +BS, no organomegaly, bilateral CVA tenderness present Ext: No edema, warm and well perfused Skin: No rash, tattoos on arm Psych: Appropriate mood and affect Objective Labs 06/11/24 04:39 06/11/24 04:39 Labs: Laboratory Results - last 24 hr 06/10/24 04:20 WBC 29.3 H D RBC 3.88 L Hgb 11.8 L Hct 36.0 L MCV 93 MCH 30.4 MCHC 32.8 RDW Std Deviation 45.8 H Plt Count 280 D Neut % (Auto) 81 H Lymph % (Auto) 8 L [place] % (Auto) 9 Eos % (Auto) 0 Baso % (Auto) 0 Neut # (Auto) 23.7 H Lymph # (Auto) 2.4 [place] # (Auto) 2.8 H Eos # (Auto) 0.0 Baso # (Auto) 0.1 Immature Gran # (Auto) 0.41 H Absolute Nucleated RBC 0.00 Immature Gran % 1 H Nucleated RBC % 0 Sodium 138 Potassium 3.3 L D Chloride 104 Carbon Dioxide 25.2 Anion Gap 9 BUN 8 L Creatinine 0.8 Estim Creat Clear Calc 112.9 eGFR > 60 BUN/Creatinine Ratio 10 L Glucose 134 H Calculated Osmolality 275 Calcium 8.0 L Corrected Calcium 8.3 L Phosphorus 1.9 L Magnesium 1.9 Total Bilirubin 0.8 AST 20 ALT 27 Alkaline Phosphatase 124 H Total Protein 6.6 Albumin 3.6 Globulin 3.0 Albumin/Globulin Ratio 1.2 Quality Measures Quality Measures none Assessment & Plan Assessment Current Active Medications: Generic Name Dose Route Start Last Admin Trade Name Freq PRN Reason Stop Dose Admin Acetaminophen 650 mg 06/09/24 11:02 06/09/24 20:40 Acetaminophen 325 Mg Tablet PO 07/08/24 22:38 650 mg Q6H PRN Administration Fever 100.4 F or above Hydrocodone Bitart/Acetaminophen 1 tab 06/08/24 22:39 06/10/24 15:54 Hydrocodone/Apap 5/325 Tablet PO 06/13/24 22:38 1 tab Q4HR PRN Administration PAIN SCALE 4-6 (Moderate Enoxaparin Sodium 40 mg 06/09/24 09:00 06/10/24 08:55 Enoxaparin Sod Inj 40 Mg/0.4 Ml Syringe SC 06/23/24 08:59 40 mg QDAY AMADO Administration Hydromorphone HCl 0.5 mg 06/08/24 22:39 06/10/24 10:27 Hydromorphone Inj 2 Mg/Ml Vial IVP 06/13/24 22:38 0.5 mg Q4H PRN Administration PAIN SCALE 7-10 (Severe Sodium Chloride 1,000 mls @ 75 mls/hr 06/08/24 22:45 06/10/24 15:52 Ns IV 07/08/24 22:44 75 mls/hr .[id number] AMADO Administration Meropenem 1,000 mg/ Sodium 50 mls @ 100 mls/hr 06/09/24 06:00 06/10/24 15:51 Chloride IV 06/16/24 05:59 100 mls/hr Q8HR AMADO Administration Lorazepam 1 mg 06/09/24 16:12 Lorazepam 0.5 Mg Tablet PO X1 PRN AGITATION Tamsulosin HCl 0.4 mg 06/09/24 09:00 06/10/24 08:56 Tamsulosin Hcl 0.4 Mg Capsule PO 07/09/24 08:59 0.4 mg QDAY AMADO Administration Plan The patient is a 49-year-old male with significant past medical history of renal stones and recent urinary tract infection who was treated with ciprofloxacin for 10 days course, presented to ED on 06/08/2024 with chief complaint of bilateral flank pain for 1 days and was admitted to [facility] telemetry unit for further management of sepsis secondary to complicated UTI. #E. coli Complicated UTI #Left pyelonephritis #Left renal calculi Patient came in and found to have 2 or more SIRS criteria and was evaluated for sepsis. However, based upon further work-up, sepsis was ruled out as he showed no evidence of end organ damage. Met 2/4 SIRS criteria with tachycardia and leukocytosis 35. ESR 60, CRP greater than 10.0, Pro-Jin 0.24, UA revealed turbid urine, 1+ blood, leukocyte esterase positive, RBC 10 and WBC 517 with rare urine bacteria. Chest x-ray revealed no active disease, abdomen/pelvis CT revealed 1 to 3 mm lower pole left renal calculi, mild left hydronephrosis, bilateral perinephric stranding, findings consistent with left pyelonephritis and cystitis. ID Dr. Child consulted -Continue with meropenam due to resistance to fluoroquinolone reported at [facility]. -Pain management -Blood and urine culture pending -Tamsulosin 0.4 Mg daily p.o. #Electrolyte abnormalities # Hypophosphatemia #Hypokalemia -Replete as needed Health maintenance: Dispo: meropenam for left pyelonephritis DVT prophylaxis: Enoxaparin subcu daily Diet: Regular diet CODE STATUS: Full code The patient's management plan was discussed with my attending physician Dr. Young. Deirdre Mora, PGY-1 Attending Provider Attestation/Addendum I reviewed labs, imaging, EKG, home medications and prior available records. Face to face evaluation was performed by me. I have personally examined the patient and discussed assessment and plan with the IM team. I reviewed the resident note and agree with the plan with exceptions as below. Flank pain Sepsis Acute left pyelonephritis, ESBL E. coli Methamphetamine abuse He has recent admission for UTI Monitor WBC: Downtrending Started meropenem Consulted ID Follow-up blood and urine cultures: Blood cultures growing gram-negative rods. Urine cultures grew ESBL E. coli Replete potassium as needed and monitor BMP
[2024-06-10 20:00] VITALS: BP 132/78; PULSE 92; RESP 16; TEMP 36.6; O2SAT 97
[2024-06-11] VITALS: BP 112/60; PULSE 103; PULSE 88; RESP 20; TEMP 37.3; O2SAT 97
--- NOTE | 2024-06-11 01:50 | EKG_ITS ---
[facility] Test Date: 2024-06-11 Pat Name: RENEE ALFARO [facility] Wool Tamper: ETIENNE : 1975 Requested By: Susannah Moore Order Number: [id number] Reading MD: Susannah Moore Measurements Intervals [place] Rate: 85 P: -67 DE: 141 QRS: 34 QRSD: 92 T: 43 QT: 341 QTc: 408 Interpretive Statements ECTOPIC ATRIAL RHYTHM ABNORMAL RHYTHM ECG No previous ECG available for comparison /store/S0/[id number]/ecg/[id number]
[2024-06-11 04:00] VITALS: BP 132/75; PULSE 85; PULSE 90; RESP 20; TEMP 37; O2SAT 95
[2024-06-11] MEDS: HYDROmorphone INJ 2 MG/ML VIAL 0.5 MG IVP (04:59)
[2024-06-11] MEDS: MEROPENEM INJ 1,000 MG in SODIUM CHLORIDE 0.9% (Popper) 50 ML 100 MG IV (05:00)
[2024-06-11] MEDS: SODIUM CHLORIDE 0.9% 1000 ML 1,000 ML 75 ML IV (05:00)
[2024-06-11 06:32] LABS: Alanine Aminotransferase 22 U/L (10-49); Albumin, Serum 3.5 gm/dL (3.5-5.0); Albumin/Globulin Ratio 1.2 (1.2-2.2); Alkaline Phosphatase 139 U/L (46-116); Anion Gap 9 (7-16); Aspartate Amino Transferase 16 U/L (0-34); BUN/Creatinine Ratio 10 Ratio (12-20); Basophils # (Auto) 0.1 Thou/mm3 (0.0-0.2); Basophils % (Auto) 1 % (0-2.5); Bilirubin,Total 0.5 mg/dL (0.3-1.2); Blood Urea Nitrogen 8 mg/dL (9-23); Calcium 8.2 mg/dL (8.3-10.6); Calcium (Corrected) 8.6 mg/dL (8.5-10.1); Carbon Dioxide 26.1 mMol/L (20.0-31.0); Chloride 105 mMol/L (98-107); Creatinine (Component) 0.8 mg/dL (0.6-1.3); Eosinophils # (Auto) 0.1 Thou/mm3 (0.0-0.5); Eosinophils % (Auto) 1 % (0-10); Estimated Creatinine Clearance 112.9 mL/min (>60); Glucose 120 mg/dL (74-106); Hematocrit 37.9 % (41.0-53.0); Hemoglobin 12.3 g/dL (13.5-16.0); Immature Granulocytes % (Auto) 1 % (0-0); Immature Granulocytes Auto 0.08 Thou/mm3 (0.00-0.00); Lymphocytes # (Auto) 2.7 Thou/mm3 (1.0-4.8); Lymphocytes % (Auto) 16 % (10-50); Magnesium 2.1 mg/dL (1.6-2.6); Mean Corpuscular HGB Conc 32.5 g/dl (31.0-37.0); Mean Corpuscular Hemoglobin 30.7 pg (25.0-35.0); Mean Corpuscular Volume 95 fL (80-100); Monocytes # (Auto) 1.8 Thou/mm3 (0.0-0.8); Monocytes % (Auto) 11 % (0-12); Neutrophils % (Auto) 71 % (37-80); Nucleated Red Blood Cell % 0 /100 WBC (0); Osmolality,Calculated 278 (275-295); Phosphorous 2.6 mg/dL (2.4-5.1); Platelet Count 316 Thou/mm3 (140-440); Potassium 3.5 mMol/L (3.4-5.1); Red Blood Count 4.01 Miln/mm3 (4.50-5.90); Sodium 140 mMol/L (136-145); Total Protein 6.5 gm/dL (5.7-8.2); White Blood Count 16.8 Thou/mm3 (3.8-10.6); eGFR > 60 See Note
[2024-06-11 08:00] VITALS: BP 114/66; PULSE 94; RESP 16; TEMP 36.6; O2SAT 95
[2024-06-11] MEDS: ENOXAPARIN SOD INJ 40 MG/0.4 ML SYRINGE SC (08:04)
[2024-06-11] MEDS: HYDROcodone/APAP 5/325 TABLET 1 TAB PO ×2 (08:05→17:55)
[2024-06-11] MEDS: TAMSULOSIN HCL 0.4 MG CAPSULE PO (08:05)
[2024-06-11] MEDS: POTASSIUM CHLORIDE 20 mEq TABCR 40 MEQ PO (09:34)
--- NOTE | 2024-06-11 10:16 | PC.SS ---
Follow up note: Pt is on IV antibiotic. Pt will return home upon dc.
[2024-06-11 12:00] VITALS: BP 141/85; PULSE 88; PULSE 94; TEMP 36.8; O2SAT 97
--- NOTE | 2024-06-11 12:50 | PC.NURSE ---
PATIENT HAD A VISITOR AT BEDSIDE AT APPROXIMATELY AT 1250, AND I INFORMED WITH PATIENTS CONSENT THAT VISITORS MUST WEAR PPE DUE TO CONTACT PRECAUTIONS, PATIENT STATED I FEEL LIKE AM IN CORRECTION . PATIENT EDUCATED ON ISOLATION PRECAUTIONS AND HOSPITAL POLICY.
--- NOTE | 2024-06-11 13:01 | PD.RESPRO ---
Documentation for date of: 06/11/24 Subjective Subjective Interval history: Patient examined at bedside. He continues to experience left lower quadrant and left lower back pain. Endorses discolored urine--dark red, orange. Denies any dysuria. Leukocytosis improving to 16.8, potassium 3.5. Will continue with meropenem for treatment of E. coli UTI with left-sided pyelonephritis. Additional recommendations from ID are pending. Exam Vital Signs Temp Pulse Resp BP Pulse Ox O2 Del Method 97.8 F 94 16 114/66 95 Nasal Cannula 06/11/24 08:00 06/11/24 08:00 06/11/24 08:00 06/11/24 08:00 06/11/24 08:00 06/11/24 04:00 Narrative Exam General: Middle aged male, in some distress from pain, cooperative HEENT: Moist mucous membranes, oropharynx clear Neck: Supple, No masses, No JVD CVS: S1S2 Regular rate and rhythm, No murmurs, rubs or gallops Lungs: Clear to auscultation with no accessory use, no wheeze no rhonchi Abd: Soft, NT/ND, +BS, no organomegaly, leftt CVA tenderness present, LLQ pain to palpation Ext: No edema, warm and well perfused Skin: No rash, tattoos on arm Psych: Appropriate mood and affect. Alert and Oriented x 3 Objective Labs 06/11/24 04:39 06/11/24 04:39 Labs: Laboratory Results - last 24 hr 06/11/24 04:39 WBC 16.8 H D RBC 4.01 L Hgb 12.3 L Hct 37.9 L MCV 95 MCH 30.7 MCHC 32.5 RDW Std Deviation 47.0 H Plt Count 316 D Neut % (Auto) 71 Lymph % (Auto) 16 [place] % (Auto) 11 Eos % (Auto) 1 Baso % (Auto) 1 Neut # (Auto) 12.0 H Lymph # (Auto) 2.7 [place] # (Auto) 1.8 H Eos # (Auto) 0.1 Baso # (Auto) 0.1 Immature Gran # (Auto) 0.08 H Absolute Nucleated RBC 0.00 Immature Gran % 1 H Nucleated RBC % 0 Sodium 140 Potassium 3.5 Chloride 105 Carbon Dioxide 26.1 Anion Gap 9 BUN 8 L Creatinine 0.8 Estim Creat Clear Calc 112.9 eGFR > 60 BUN/Creatinine Ratio 10 L Glucose 120 H Calculated Osmolality 278 Calcium 8.2 L Corrected Calcium 8.6 Phosphorus 2.6 Magnesium 2.1 Total Bilirubin 0.5 AST 16 ALT 22 Alkaline Phosphatase 139 H Total Protein 6.5 Albumin 3.5 Globulin 3.0 Albumin/Globulin Ratio 1.2 Quality Measures Quality Measures none Assessment & Plan Assessment Current Active Medications: Generic Name Dose Route Start Last Admin Trade Name Freq PRN Reason Stop Dose Admin Acetaminophen 650 mg 06/09/24 11:02 06/09/24 20:40 Acetaminophen 325 Mg Tablet PO 07/08/24 22:38 650 mg Q6H PRN Administration Fever 100.4 F or above Hydrocodone Bitart/Acetaminophen 1 tab 06/08/24 22:39 06/11/24 08:05 Hydrocodone/Apap 5/325 Tablet PO 06/13/24 22:38 1 tab Q4HR PRN Administration PAIN SCALE 4-6 (Moderate Enoxaparin Sodium 40 mg 06/09/24 09:00 06/11/24 08:04 Enoxaparin Sod Inj 40 Mg/0.4 Ml Syringe SC 06/23/24 08:59 40 mg QDAY AMADO Administration Hydromorphone HCl 0.5 mg 06/08/24 22:39 06/11/24 04:59 Hydromorphone Inj 2 Mg/Ml Vial IVP 06/13/24 22:38 0.5 mg Q4H PRN Administration PAIN SCALE 7-10 (Severe Sodium Chloride 1,000 mls @ 75 mls/hr 06/08/24 22:45 06/11/24 05:00 Ns IV 07/08/24 22:44 75 mls/hr .[id number] AMADO Administration Meropenem 1,000 mg/ Sodium 50 mls @ 100 mls/hr 06/09/24 06:00 06/11/24 05:00 Chloride IV 06/16/24 05:59 100 mls/hr Q8HR AMADO Administration Sodium Chloride 1,000 mls @ 100 mls/hr 06/11/24 11:34 Ns IV 06/11/24 21:33 .Q10H ONE Lorazepam 1 mg 06/09/24 16:12 Lorazepam 0.5 Mg Tablet PO X1 PRN AGITATION Tamsulosin HCl 0.4 mg 06/09/24 09:00 06/11/24 08:05 Tamsulosin Hcl 0.4 Mg Capsule PO 07/09/24 08:59 0.4 mg QDAY AMADO Administration Plan The patient is a 49-year-old male with significant past medical history of renal stones and recent urinary tract infection who was treated with ciprofloxacin for 10 days course, presented to ED on 06/08/2024 with chief complaint of bilateral flank pain for 1 days and was admitted to [facility] telemetry unit for further management of complicated UTI with pyelonephritis. #E coli bacteremia #E. coli Complicated UTI #Left pyelonephritis #Left renal calculi Patient came in and found to have 2 or more SIRS criteria and was evaluated for sepsis. However, based upon further work-up, sepsis was ruled out as he showed no evidence of end organ damage. Met 2/4 SIRS criteria with tachycardia and leukocytosis 35. ESR 60, CRP greater than 10.0, Pro-Jin 0.24, UA revealed turbid urine, 1+ blood, leukocyte esterase positive, RBC 10 and WBC 517 with rare urine bacteria. Chest x-ray revealed no active disease, abdomen/pelvis CT revealed 1 to 3 mm lower pole left renal calculi, mild left hydronephrosis, bilateral perinephric stranding, findings consistent with left pyelonephritis and cystitis. ID Dr. Child consulted -Continue with meropenam due to resistance to fluoroquinolone reported at [facility]. -Pain management -Blood cultures: 1/2 positive for E. coli -Tamsulosin 0.4 Mg daily p.o. -follow up outpatient for renal calculi #Electrolyte abnormalities # Hypophosphatemia #Hypokalemia -Replete as needed Health maintenance: Dispo: meropenam for left pyelonephritis DVT prophylaxis: Enoxaparin subcu daily Diet: Regular diet CODE STATUS: Full code The patient's management plan was discussed with my attending physician Dr. Young. Deirdre Mora, PGY-1
--- NOTE | 2024-06-11 15:32 | PD.IDPROG ---
Subjective Subjective Interval history: partial obstruction noted with stones. Exam Vital Signs Temp Pulse Resp BP Pulse Ox O2 Del Method 98.3 F 88 16 141/85 H 97 Room Air 06/11/24 12:00 06/11/24 12:00 06/11/24 08:00 06/11/24 12:00 06/11/24 12:00 06/11/24 12:00 Narrative Exam pt alert. not ill appearing. exam benign. in isolation due to esbl in urine and bc Objective - Internal Medicine Labs 06/11/24 04:39 06/11/24 04:39 Labs: Laboratory Results - last 24 hr 06/11/24 04:39 WBC 16.8 H D RBC 4.01 L Hgb 12.3 L Hct 37.9 L MCV 95 MCH 30.7 MCHC 32.5 RDW Std Deviation 47.0 H Plt Count 316 D Neut % (Auto) 71 Lymph % (Auto) 16 Hamlin % (Auto) 11 Eos % (Auto) 1 Baso % (Auto) 1 Neut # (Auto) 12.0 H Lymph # (Auto) 2.7 Hamlin # (Auto) 1.8 H Eos # (Auto) 0.1 Baso # (Auto) 0.1 Immature Gran # (Auto) 0.08 H Absolute Nucleated RBC 0.00 Immature Gran % 1 H Nucleated RBC % 0 Sodium 140 Potassium 3.5 Chloride 105 Carbon Dioxide 26.1 Anion Gap 9 BUN 8 L Creatinine 0.8 Estim Creat Clear Calc 112.9 eGFR > 60 BUN/Creatinine Ratio 10 L Glucose 120 H Calculated Osmolality 278 Calcium 8.2 L Corrected Calcium 8.6 Phosphorus 2.6 Magnesium 2.1 Total Bilirubin 0.5 AST 16 ALT 22 Alkaline Phosphatase 139 H Total Protein 6.5 Albumin 3.5 Globulin 3.0 Albumin/Globulin Ratio 1.2 Assessment & Plan A&P Narrative uti with fever and sx after recent rx at . hx of prior R germ in urine known renal stone disease meth use hx drink plenty of fluids changed empiric abx to po bactrim ds bid thru sunday may continue bactrim ds daily after that till stones addressed by urology (if urology f/u is planned) otherwise stop the bactrim after sunday home at your discretion I will see again only prn Time Spent With Patient Time: Total time spent is greater than 50% in coordination of care (as documented) at patient's floor/unit and/or counseling patient:
[2024-06-11 16:00] VITALS: BP 131/86; PULSE 92; PULSE 93; RESP 18; TEMP 37.2; O2SAT 96
[2024-06-11 16:08] VITALS: BMI 25.9
[2024-06-11 16:14] LABS: HIV (1&2) Antibody Rapid Non-Reactive
[2024-06-11 16:45] LABS: Hepatitis C Antibody Non Reactive (Non React)
[2024-06-11] MEDS: SODIUM CHLORIDE 0.9% 1000 ML 1,000 ML 100 ML IV (17:55)
--- NOTE | 2024-06-11 18:15 | PC.NURSE ---
PATIENT STATING HE IS UPSET BECAUSE HE IS TIRED OF THE IV MEDICATION AND HAVING IV'S IN, PATIENT STATES HE WANTS TO LEAVE AMA, PATIENT THOROUGHLY EDUCATION ON BENEFITS OF STAYING AND RISK OF LEAVING. PATIENT PRESENTED WITH ALL OPTIONS AND STATES IT HE STILL WANTS TO LEAVE. DR. CALVO NOTIFIED OF SITUATION AND CAME DOWN AND SPOKE TO PATIENT AND REITERATED EDUCATION TOPIC. PATIENT ADAMANT OF HIS DECISION.
--- NOTE | 2024-06-11 18:37 | PD.RESDS ---
Planned Discharge Date 06/11/24 DS: Providers Provider Date of admission: 06/08/24 22:39 Primary care physician: Physician No Primary/Family Admitting Provider: Victor M Middleton MD Attending Provider on Admission: Kalpesh Young MD Consults: 06/09/24 10:29 Consult to Infectious Diseases Routine Comment: complicated UTI Consulting Provider: Adma Child Attending Provider on DC: Kalpesh Young MD Discharging Provider: Kalpesh Young MD DS: Diagnosis Problem List Completed Was Problem List Reviewed/Reconciled?: Yes Hospital Course Hospital Course Hospital course: Reason for hospitalization: Pyelonephritis, ESBL E coli UTI Alistair Choi is 49 yr male with PMH of renal stones, methampethamine use, and recent urinary tract infection who was treated with ciprofloxacin for 10 days course. He presented to [facility] ED on 06/08/24 due to bilateral flank pain for 1 day. Approximately 3 weeks ago, he was admitted to [facility] and found to have bilateral renal stones. The UTI reportedly resistance to quinolone. Chest x-ray revealed no active disease, abdomen/pelvis CT revealed 1 to 3 mm lower pole left renal calculi, mild left hydronephrosis, bilateral perinephric stranding, findings consistent with left pyelonephritis and cystitis. Urine culture was positive for ESBL E. coli. ID Dr. Child was consulted. Patient was started intially started on meropenam due to the resistance noted at [facility]. Patient had frequent episodes of hematuria with continued left lower quadrant and left CVA pain. He was encouraged to keep up with oral hydration and was switched to p.o. antibiotic Bactrim. Patient is now in stable condition and ready for discharge. Recommendations were given as below. Discharge Recommendations: Finish taking Bactrim 800mg twice a day for 4 days for treatment of your kidney infection. Start taking tamsulosin 0.4mg daily for continued management of kidney stones. Follow up with PCP in 1-2 weeks. Follow up with urology for management of your kidney stones. Return to ED if symptoms return or worsen. Hospital Diagnoses: #ESBL E. coli Complicated UTI #Left pyelonephritis #Left renal calculi #Electrolyte abnormalities # Hypophosphatemia #Hypokalemia The patient's management plan was discussed with my attending physician Dr. Young. Deirdre Mora MD, PGY-1 Time spent discussing smoking cessation with patient: more than 10 minutes Time Spent with Patient Time attestation: Total time spent providing and/or coordinating discharge services: Time spent: Greater than 30 minutes Exam Vital Signs Temp Pulse Resp BP Pulse Ox O2 Del Method 99 F 93 18 131/86 H 96 Room Air 06/11/24 16:00 06/11/24 16:00 06/11/24 16:00 06/11/24 16:00 06/11/24 16:00 06/11/24 16:00 Narrative Exam General: No acute distress, Alert and Oriented x 3 HEENT: Moist mucous membranes, oropharynx clear Neck: Supple, No masses, No JVD CVS: S1S2 Regular rate and rhythm, No murmurs, rubs or gallops Lungs: Clear to auscultation with no accessory use, no wheeze no rhonchi Abd: Soft, NT/ND, +BS, no organomegaly, , LLQ pain, left CVA tenderness present Ext: No edema, warm and well perfused Skin: No rash, tattoos on arm Psych: Appropriate mood and affect Discharge Plan Plan Patient Disposition: HOME (Self Care) Patient condition on transfer: Stable Prescriptions/Referrals Prescriptions/Med Rec: New sulfamethoxazole-trimethoprim 800-160 mg tablet 1 tab PO BID 4 Days Qty: 8 0RF tamsulosin 0.4 mg Capsule 0.4 mg PO QDAY 30 Days Qty: 30 2RF Continued Hydrocodone/Acetaminophen * (NORCO 7.5/325 *) 1 TAB tablet 1 tab PO Q6H PRN (Reason: PAIN) Qty: 28 0RF Referrals: Mell Bal MD [Physician] - No Primary/Family,Physician [Primary Care Provider] - Patient/Caregiver Discharge Instructions Other Discharge Activity Instructions:: Finish taking Bactrim 800mg twice a day for 4 days for treatment of your kidney infection. Start taking tamsulosin 0.4mg daily for continued management of kidney stones. Follow up with PCP in 1-2 weeks. Follow up with urology for management of your kidney stones. Return to ED if symptoms return or worsen. Education Materials: ED Kidney Stone w/ Colic, ED Pyelonephritis, Male (Adult) Print Language: Swedish Stand Alone Forms: Laura Award Info., Patient Portal Info Letter Discharge Order Discharge Orders: Discharge (Routine); Ordered 06/11/24 Ordered By: Deirdre Mora Quality Discharge Quality Measures VTE prophylaxis Attestestation MD Attestation I reviewed labs, imaging, EKG, home medications and prior available records. Face to face evaluation was performed by me. I have personally examined the patient and discussed assessment and plan with the IM team. I reviewed the resident note and agree with the plan with exceptions as below. Flank pain Sepsis Acute left pyelonephritis, ESBL E. coli Methamphetamine abuse Leukocytosis He has recent admission for UTI Monitor WBC: Downtrending Consulted ID: Recommended transition to p.o. Bactrim till Sunday Follow-up blood and urine cultures: Blood cultures growing E. coli. Urine cultures grew ESBL E. coli Monitor BMP as outpatient Time spent is 40 minutes. More than 50% of the time was spent on patient education and coordination of care.
== END 2024-06-11 18:54 | disposition home or self-care (01) | DRG 463 ==
LOC: SERX 21:38 → SERHOLD 23:20 → S3SX 23:48
PROVIDERS: Internal Medicine Infectious Disease; Nurse Practitioner Family; Student in an Organized Health Care Education/Training Program; Admitting Provider Internal Medicine; Emergency Provider Emergency Medicine; Visit Provider Student in an Organized Health Care Education/Training Program
DX: N10 Acute pyelonephritis (principal); E86.1 Hypovolemia; E87.1 Hypo-osmolality and hyponatremia; N30.90 Cystitis, unspecified without hematuria; N13.6 Pyonephrosis; N20.0 Calculus of kidney; B96.20 Unspecified Escherichia coli [E. coli] as the cause of diseases classified elsewhere; E83.39 Other disorders of phosphorus metabolism; E87.6 Hypokalemia; Z87.442 Personal history of urinary calculi; F15.10 Other stimulant abuse, uncomplicated; F17.200 Nicotine dependence, unspecified, uncomplicated; Z16.12 Extended spectrum beta lactamase (ESBL) resistance; Z16.23 Resistance to quinolones and fluoroquinolones
CPT/HCPCS: 36415; 71045; 74176; 80053; 80061; 81001; 83605; 83690; 83735; 84100; 84145; 84443; 85025; 85652; 86140; 86703; 86803; 87040; 87077; 87086; 87186; 93005; 93225; 96365; 96372; 99285; J0696; J1650; J1885; J2185; J2270; J3490; J7030; J7050; A9270

== ENCOUNTER 2024-11-25 20:15 | Inpatient (IN) | payer MEDICAID, SELFPAY ==
[2024-11-25 20:17] VITALS: BMI 25.8
[2024-11-25 20:26] VITALS: BP 132/81; PULSE 113; RESP 19; TEMP 37.7; O2SAT 97
--- NOTE | 2024-11-25 20:32 | EKG_ITS ---
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
--- NOTE | 2024-11-25 20:32 | XR_ITS ---
Examination: AP chest single view Technique one AP portable upright chest single view Date and time: November 25, 2024, 2111 hrs. Indications: Sepsis protocol today. Findings: Normal heart size No pneumonia No pulmonary edema The osseous structures are intact Impression: No pneumonic consolidation
--- NOTE | 2024-11-25 20:33 | XR_ITS ---
Examination: CT abdomen and pelvis without contrast. Coronal 3-D reconstructions. Sagittal 2-D reconstructions. Date and time of exam:November 25, 2024, 0 hrs., Comparison June 08, 2024 Indications: Bilateral flank pain today, history kidney stones CTDI: vol (mGy): 5.96 DLP: (mGycm): 368 Technique: Axial images of the abdomen have been obtained, 3 mm slice thickness Intravenous contrast material has not been administered. Low dose protocols were performed. One or more of the following dose reduction techniques were used; automated exposure control, adjustment of the mA and/or KV according to patient size, use of iterative reconstruction technique. Findings: No focal liver or splenic lesions Calcified wall of the gallbladder No pancreatic or adrenal mass 2 mm left renal calculus Mild perinephric stranding No hydronephrosis or ureteral calculi Normal appendix Mild small bowel fluid distended loops Urinary bladder wall thickening up to 8 mm Prostatomegaly, AP dimension 4.6 cm Advanced disc narrowing L5-S1 Impression: Calcified wall the gallbladder, recommend hepatobiliary sonography follow-up 2 mm nonobstructing left renal calculus Perinephric stranding, consider urinary tract infection Cystitis pattern Moderate prostatomegaly
[2024-11-25 20:40] VITALS: PULSE 106; RESP 25; RESP 95
--- NOTE | 2024-11-25 20:47 | PD.EDADULT ---
ED General RME/HPI General Chief complaint: Fever Stated complaint: FEVER Time Seen by Provider: 11/25/24 20:30 Arrival date/time: 11/25/24 20:15 CC: Bilateral flank pain chills, nausea HPI onset approximately 9 hours ago. Patient has a significant history of kidney stones and was seen here in June 2024 for the same complaint was Ev being admitted for pyelonephritis. Patient denies any active vomiting patient states he has blood in his urine. No OTC's medications taken. Related Data Previous Rx's ?Medication ?Instructions ?Recorded Hydrocodone/Acetaminophen * (NORCO 1 tab PO Q6H PRN PAIN #28 tabs 03/27/15 7.5/325 *) tamsulosin 0.4 mg capsule 0.4 mg PO QDAY 30 days #30 caps 06/11/24 Allergies Allergy/AdvReac Type Severity Reaction Status Date / Time No Known Allergies Allergy Verified 11/25/24 20:16 Review of Systems Review of Systems Narrative Review of Systems: GEN: No fever, + chills, no weight loss EYES: No discharge, no visual changes, no pain HEENT: No ear pain, no congestion, no sore throat PULM: No shortness of breath, no cough, no congestion CV: No chest pain, no dyspnea on exertion, no palpitations GI: + nausea, no vomiting, no diarrhea, no pain, no constipation : No frequency, no urgency, no dysuria MUSC/SKEL: No joint pain, +back pain SKIN: No rash PSYCH: No hallucinations, no depression HEME/LYMPH: No easy bleeding or bruising tendencies NEURO: No weakness, no headache Past Medical History Past Medical History CARDIAC: Negative Hypercholesterolemia or Congestive Heart Failure RESPIRATORY: Negative Chronic Obstructive Pulmonary Disease (COPD) GENITOURINARY: Positive Genitourinary Disorders and Kidney Stones; Negative Renal Disease ENDOCRINE: Negative Diabetes Mellitus Type 1 or Diabetes Mellitus Type 2 Social History SMOKING STATUS: Former smoker ED Exam Narrative Physical exam: [General: In moderate discomfort but not in any acute distress Head normocephalic HEENT: Eyes pupils are PERRLA EOMs are intact mouth pink moist membranes uvula is midline swallow symmetrical all of the subsystems of HEENT are within acceptable limits Neck is supple nontender Chest equal chest rise nontender to palpation Respiratory: Tachypneic, clear to auscultation no wheezes crackles or rubs CV: Rate rhythm is regular, tachycardic, no murmurs rubs or clicks Abdomen is distended secondary to body habitus soft nontender no masses positive bowel sounds all 4 quadrants Back: + CVA tenderness bilaterally, no spinous process tenderness from cervical spine thoracic and lumbar spine Skin: Intact no petechiae rash induration ulceration or crepitus Extremities: Moving all extremity against resistance cap refill less than 2 seconds neurosensory intact Neuro: Awake alert oriented x3 Glascow coma 15 no focal deficits] Course Course Course Narrative: Patient's clinical findings laboratory results and imaging discussed with Dr. Prince attending agrees to accept the patient for admission for pyelonephritis. Quality Measures none Orders Category Date Time Status Bladder Scan NOW Care 11/25/24 22:08 Active Sous Chef Kitchen Manager STAT Care 11/25/24 20:32 Active Continuous Pulse Oximetry STAT Care 11/25/24 20:32 Completed EKG (ED ONLY) *Do not use* NOW Care 11/25/24 20:32 Completed In and Out Catheter X1PRN Care 11/25/24 20:32 Active Insert IV NOW Care 11/25/24 20:32 Active NPO STAT Care 11/25/24 20:32 Active Strict Intake and Output Routine Care 11/25/24 20:[address] abdomen pelvis wo con Stat Exams 11/25/24 20:33 Completed EKG (ED Only) Stat Exams 11/25/24 20:32 Draft XR chest 1V SEPSIS PROTOCOL Stat Exams 11/25/24 20:32 Completed B-Type Natriuretic Peptide Stat Lab 11/25/24 20:43 Completed Blood Culture (Lab) Stat Lab 11/25/24 20:48 Received CBC Stat Lab 11/25/24 20:43 Completed Comprehensive Metabolic Panel Stat Lab 11/25/24 20:43 Completed LDH (Lactate Dehydrogenase) Stat Lab 11/25/24 20:43 Completed Lactate (Lactic Acid) Stat Lab 11/25/24 20:43 Results Magnesium Stat Lab 11/25/24 20:43 Completed Partial Thromboplastin Time Stat Lab 11/25/24 20:43 Completed Phosphorous Stat Lab 11/25/24 20:43 Completed Procalcitonin Stat Lab 11/25/24 20:43 Completed Prothrombin Time with INR Stat Lab 11/25/24 20:43 Completed Troponin I Stat Lab 11/25/24 20:43 Completed Urinalysis, C/S if Indicated Stat Lab 11/25/24 21:34 Completed Urine Culture Stat Lab 11/25/24 21:34 Received Meropenem Inj [Merrem Inj] 1,000 mg Med 11/25/24 20:32 Discontinued SODIUM CHLORIDE 0.9% (Popper) [Ns 0.9% (P)] 50 ml IV X1 Morphine* Inj Med 11/25/24 20:54 Discontinued 4 mg IVP X1 ONE Ondansetron Inj [Zofran Inj] Med 11/25/24 20:32 Discontinued 4 mg IVP X1 ONE Ringers Lactated 1000 ml [Lactated Ringers] 1,000 ml Med 11/25/24 20:33 Discontinued IV 999 mls/hr Ringers Lactated 1000 ml [Lactated Ringers] 1,000 ml Med 11/25/24 21:32 Active IV 999 mls/hr Ringers Lactated 500 ml [Lactated Ringers] 500 ml Med 11/25/24 21:33 Discontinued IV 999 mls/hr Oxygen Delivery NOW RT 11/25/24 20:32 Active Vital Signs Vital signs: Vital Signs Temperature 100 F 11/25/24 20:26 Pulse Rate 113 H 11/25/24 20:26 Respiratory Rate 19 11/25/24 20:26 Blood Pressure 132/81 H 11/25/24 20:26 Pulse Oximetry (%) 97 11/25/24 20:26 Oxygen Delivery Method Room Air 11/25/24 20:26 Discharge Plan Plan Patient Disposition: Other Care w/in Hosp (SDC/CAL) Prescriptions/Referrals Prescriptions/Med Rec: No Action Hydrocodone/Acetaminophen * (NORCO 7.5/325 *) 1 TAB tablet 1 tab PO Q6H PRN (Reason: PAIN) Qty: 28 0RF tamsulosin 0.4 mg Capsule 0.4 mg PO QDAY 30 Days Qty: 30 2RF Referrals: Juan Carlos Acosta MD [Primary Care Provider, Family Practice] - In 1 week Problem List Clinical Impression: Acute pyelonephritis Patient/Caregiver Discharge Instructions Print Language: Citizen Of [place] Stand Alone Forms: Laura Award Info., Patient Portal Info Letter PA/PRODUCTION CONTROL COORDINATOR Supervising Physician PA/PRODUCTION CONTROL COORDINATOR Supervising Physician: Aubrey Oliveira ENP [facility] Clinical Information Provided by: patient Medical Records reviewed [facility] Medical Records additional comments: Last admission was in June 2023 for pyelonephritis the patient has a history of renal stones has been admitted prior to this at [facility] for same complaint. Last urine culture was positive for ESBL E. coli. Recommendation by ID was start the patient on meropenem at the time. Meds/Rx considered, not ordered None Labs/Rad/Tests considered, not ordered None Chronic Illness/Social Conditions Explain: Pyelonephritis urolithiasis methamphetamine abuse Labs Labs: interpreted by me Lab(s) Interpretation(s): EKG performed at 2014 10 shows a ventricular rate of 97 CO interval 131 QRS of 111 QTc of 391 this is sinus rhythm. When compared to an old EKG April 2021 there are no significant changes. CBC shows a leukocytosis of 23,200. No anemia no thrombocytopenia no bandemia Coags within acceptable limits CMP shows sodium 135 BUN of 7 no other electrolyte imbalances no transaminitis or T. bili elevation Lactic at 2.4 Procalcitonin at 0.28. Urine shows a pH of 7.5. Nitrite positive leukocyte esterase positive RBCs of 5 WBC of 14. No bacteria Imaging Imaging interpretation: interpreted by me Imaging Interpretation(s): CT shows 2 mm nonobstructive left renal calculus with perinephric stranding and cystitis. Chest x-ray is negative for any acute finding. Medication Administration(s) Medication Administration History Lactated Ringer's (Lactated Ringers) 1,000 mls @ 999 mls/hr IV .Q1H1M ONE Stop: 11/25/24 22:32 Last Admin: 11/25/24 21:49 Dose: 999 mls/hr Documented By: WO Discontinued Medications Meropenem 1,000 mg/ Sodium (Chloride) 50 mls @ 100 mls/hr IV X1 ONE Stop: 11/25/24 20:33 Last Infusion: 11/25/24 21:22 Dose: Infused Documented By: Admin: 11/25/24 20:52 Dose: 100 mls/hr Documented By: UVALDO Lactated Ringer's (Lactated Ringers) 1,000 mls @ 999 mls/hr IV .Q1H1M ONE Stop: 11/25/24 21:33 Last Admin: 11/25/24 21:23 Dose: 999 mls/hr Documented By: UVALDO Lactated Ringer's (Lactated Ringers) 500 mls @ 999 mls/hr IV .Q31M ONE Stop: 11/25/24 22:03 Last Admin: 11/25/24 21:49 Dose: 999 mls/hr Documented By: ALEENA Morphine Sulfate (Morphine Sulf Inj 4 Mg/Ml Vial) 4 mg IVP X1 ONE Stop: 11/25/24 20:55 Last Admin: 11/25/24 21:02 Dose: 4 mg Documented By: UVALDO Ondansetron HCl (Ondansetron Inj 2 Mg/Ml Inj 2 Ml) 4 mg IVP X1 ONE; Protocol Stop: 11/25/24 20:33 Last Admin: 11/25/24 20:51 Dose: 4 mg Documented By: UVALDO
[2024-11-25] MEDS: ONDANSETRON INJ 2 MG/ML INJ 2 ML 4 MG IVP (20:51)
[2024-11-25] MEDS: MEROPENEM INJ 1,000 MG in SODIUM CHLORIDE 0.9% (Popper) 50 ML 100 MG IV (20:52)
[2024-11-25 20:59] LABS: Basophils # (Auto) 0.1 Thou/mm3 (0.0-0.2); Basophils % (Auto) 0 % (0-2.5); Eosinophils # (Auto) 0.1 Thou/mm3 (0.0-0.5); Eosinophils % (Auto) 0 % (0-10); Hematocrit 45.5 % (41.0-53.0); Hemoglobin 15.3 g/dL (13.5-16.0); Immature Granulocytes Auto 0.12 Thou/mm3 (0.00-0.00); Lactate (Lactic Acid) 2.4 mMol/L (0.4-2.0); Lymphocytes # (Auto) 2.0 Thou/mm3 (1.0-4.8); Lymphocytes % (Auto) 9 % (10-50); Mean Corpuscular HGB Conc 33.6 g/dl (31.0-37.0); Mean Corpuscular Hemoglobin 31.2 pg (25.0-35.0); Mean Corpuscular Volume 93 fL (80-100); Monocytes # (Auto) 2.3 Thou/mm3 (0.0-0.8); Monocytes % (Auto) 10 % (0-12); Neutrophils # (Auto) 18.7 Thou/mm3 (1.8-7.7); Neutrophils % (Auto) 81 % (37-80); Nucleated Red Blood Cell # 0.00 Thou/mm3 (0.00-0.00); Nucleated Red Blood Cell % 0 /100 WBC (0); Platelet Count 249 Thou/mm3 (140-440); RDW Standard Deviation 42.6 fL (35.1-43.9); Red Blood Count 4.91 Miln/mm3 (4.50-5.90); White Blood Count 23.2 Thou/mm3 (3.8-10.6)
[2024-11-25] MEDS: MORPHINE SULF INJ 4 MG/ML VIAL IVP (21:02)
[2024-11-25 21:16] LABS: INR 1.0 (0.9-1.3); Partial Thromboplastin Time 26.0 Seconds (22.0-36.0); Prothrombin Time 10.5 Seconds (9.0-12.2)
[2024-11-25] MEDS: RINGERS LACTATED 1000 ML 1,000 ML 999 ML IV ×2 (21:23→21:49)
[2024-11-25 21:25] LABS: B-Type Natriuretic Peptide < 20 pg/mL (0-100)
[2024-11-25 21:28] LABS: Alanine Aminotransferase 20 U/L (10-49); Albumin, Serum 5.0 gm/dL (3.5-5.0); Albumin/Globulin Ratio 1.6 (1.2-2.2); Alkaline Phosphatase 88 U/L (46-116); Anion Gap 9 (7-16); Aspartate Amino Transferase 27 U/L (0-34); BUN/Creatinine Ratio 7 Ratio (12-20); Bilirubin,Total 1.0 mg/dL (0.3-1.2); Blood Urea Nitrogen 7 mg/dL (9-23); Calcium 9.8 mg/dL (8.3-10.6); Calcium (Corrected) 9.8 mg/dL (8.5-10.1); Carbon Dioxide 27.8 mMol/L (20.0-31.0); Chloride 98 mMol/L (98-107); Creatinine (Component) 1.0 mg/dL (0.6-1.3); Estimated Creatinine Clearance 90.3 mL/min (>60); Globulin 3.1 gm/dL (2.3-3.5); Glucose 109 mg/dL (74-106); LDH (Lactate Dehydrogenase) 242 U/L (120-246); Magnesium 1.6 mg/dL (1.6-2.6); Osmolality,Calculated 269 (275-295); Phosphorous 2.2 mg/dL (2.4-5.1); Potassium 3.6 mMol/L (3.4-5.1); Procalcitonin 0.28 ng/ml (0.0-0.49); Sodium 135 mMol/L (136-145); Total Protein 8.1 gm/dL (5.7-8.2); Troponin I < 0.002 ng/mL (0.0-0.045); eGFR > 60 See Note
[2024-11-25 21:43] LABS: Collection Type, Urine Clean Catch; Squamous Epithelial Cell,Urine 0 /hpf (0-5)
[2024-11-25] MEDS: RINGERS LACTATED 500 ML 500 ML 999 ML IV (21:49)
[2024-11-25 21:53] LABS: Bilirubin,Urine Negative (Negative); Blood,Urine Negative (Negative); Clarity,Urine Clear (Clear/Hazy); Color,Urine Lt-Yellow (Lt Yel-Yel); Glucose, Urine Negative (Negative); Ketones,Urine Negative (Negative); Leukocyte Esterase,Urine Positive (Negative); Nitrite,Urine Positive (Negative); PH,Urine 7.5 (5.0-7.0); Protein,Urine Trace (Neg - Trace); RBC,Urine 5 /hpf (0-3); Specific Gravity,Urine 1.022 (1.001-1.035); Urobilinogen,Urine Negative mg/dL (0.0-1.0); WBC,Urine 14 /hpf (0-5)
[2024-11-25 21:54] LABS: Culture Indicated,Urine Yes
[2024-11-25 22:08] VITALS: BP 152/84; PULSE 89; RESP 18; TEMP 36.8; O2SAT 96
[2024-11-25] MEDS: SODIUM CHLORIDE 0.9% 1000 ML 1,000 ML 100 ML IV (22:30)
--- NOTE | 2024-11-25 22:36 | ESHP_ITS ---
Documentation for date of: 11/25/24 [facility] History of Present Illness History of present illness: Left this is a 49-year-old male PMHx of recurrent kidney stones presenting to the ED with bilateral flank pain, nausea and vomiting. Symptoms started at 9 AM on the morning of admission. Reports sudden onset of bilateral flank pain associated with nausea, and vomiting mainly stomach content. History and [id number] ANALGESIC for pain without improvement. He also reports chills but no fever since 2 nights ago. Currently has a mild headache. Denies fever, chest pain, palpitation, shortness of breath, N/V/D/C, hematuria, urinary urgency or frequency. He was admitted in June of this year for similar symptoms with findings of UTI and mild left hydronephrosis secondary to 3 mm renal calculi. At the time, urine grew ESBL and he was discharged on BACTRIM per ID recommendations, to follow-up with urology outpatient. Currently does not have a PCP, and has been unable to follow-up with urology. He was also prescribed TAMSULOSIN but he is currently not taking it. Past Medical History: * As above. Past Surgical History: * None. Medications: * None. Allergies: * No known allergies. Family History: * Noncontributory. Social History: * Current METHAMPHETAMINE user. Denies alcohol or tobacco use. ED Course: * Tmax 100, HR 113, BP 132/81, satting well on room air. * Bedside COVID was negative. * WBC 23.2, platelets and hemoglobin within normal limits. * Normal coag panel. * CHEM panel remarkable for sodium 135, lactic acid 2.4, phosphorus 2.2. * Normal kidney function, LFTs, procalcitonin, troponin and BNP. * UA showed pH 7.5, RBC 5, WBC 14, positive leukocyte esterase and nitrites. * CXR was negative for acute pathology. * EKG showed sinus rhythm without acute ST changes. * CT abdomen showed 2 mm nonobstructive left renal calculi with perinephric stranding, cystitis pattern, moderate prostamegaly, no hydronephrosis bilaterally. Additionally, CT redemonstrated calcified gallbladder wall seen on previous admission. He was given 2.5 L of IV fluid boluses and started on MEROPENEM based on previous urine culture/biogram. Reason for admission: Admitted for sepsis secondary to complicated UTI secondary to renal calculi, with previous culture growing ESBL, requiring IV ANTIBIOTICS. Exam Vital Signs Temp Pulse Resp BP Pulse Ox O2 Del Method 98.3 F 89 18 152/84 H 96 Room Air 11/25/24 22:08 11/25/24 22:08 11/25/24 22:08 11/25/24 22:08 11/25/24 22:08 11/25/24 22:08 Narrative Exam GENERAL * Normal appearing male, in mild distress secondary to pain. HEENT * NCAT.?LINDSAY. Oral mucosa is moist. Patent Nares NECK * Supple, nontender, no JVD. CHEST * Tachycardic, regular rhythm, no m/g/r * CTAB, no w/r/r, symmetrical expansion. ABDOMEN * Soft, flat, nontender. No guarding/rebound tenderness/masses. * Bowel sounds presents * Bilateral flank pain. EXTREMITIES * No edema/cyanosis.? SKIN * Warm and dry, no jaundice/rashes. NEUROMUSCULAR * No lumbar or midline, no CVA, no paraspinal muscle spasm or tenderness. * Moves all 4 extremities well, with full ROM and good CSM. * LEE x4, CN II-XII grossly intact. * No focal neurologic deficits. PSYCHIATRY * Normal mood and affect, cooperative, no SI or HI or hallucinations. Results: Labs 11/26/24 04:33 11/26/24 11:26 Labs: Short CBC 11/25/24 Range/Units 20:43 WBC 23.2 H (3.8-10.6) Thou/mm3 Hgb 15.3 (13.5-16.0) g/dL Hct 45.5 (41.0-53.0) % Plt Count 249 (140-440) Thou/mm3 BMP 11/25/24 20:43 Sodium 135 L Potassium 3.6 Chloride 98 Carbon Dioxide 27.8 BUN 7 L Creatinine 1.0 Glucose 109 H Calcium 9.8 Cardiac Enzymes 11/25/24 Range/Units 20:43 Troponin I < 0.002 (0.0-0.045) ng/mL Liver Function 11/25/24 Range/Units 20:43 Total Bilirubin 1.0 (0.3-1.2) mg/dL AST 27 (0-34) U/L ALT 20 (10-49) U/L Alkaline Phosphatase 88 (46-116) U/L Albumin 5.0 (3.5-5.0) gm/dL Urine 11/25/24 Range/Units 21:34 Urine Color Lt-Yellow (Lt Yel-Yel) Urine Clarity Clear (Clear/Hazy) Urine pH 7.5 H (5.0-7.0) Ur Specific [place] 1.022 (1.001-1.035) Urine Protein Trace (Neg - Trace) Urine Glucose (UA) Negative (Negative) Quality Measures Quality Measures none Medications Home Medications and Allergies Allergies Allergy/AdvReac Type Severity Reaction Status Date / Time No Known Allergies Allergy Verified 11/25/24 20:16 Visit Medications Acetaminophen (Acetaminophen 325 Mg Tablet) 650 mg PO Q6H PRN PRN Reason: PAIN SCALE 1-3 (mild Stop: 12/25/24 22:12 Acetaminophen (Acetaminophen 325 Mg Tablet) 650 mg PO Q6H PRN PRN Reason: Fever >100.4 Stop: 12/25/24 22:12 Hydrocodone Bitart/Acetaminophen (Hydrocodone/Apap 10/325 Tab) 1 tab PO Q4HR PRN PRN Reason: PAIN SCALE 7-10 (Severe Stop: 11/30/24 22:12 Heparin Sodium (Porcine) (Heparin Sod Inj 5000 Unit/Ml Vial) 5,000 unit SC BID AMADO Stop: 12/10/24 08:59 Sodium Chloride (Ns) 1,000 mls @ 100 mls/hr IV .Q10H AMADO Stop: 12/25/24 22:14 Last Admin: 11/25/24 22:30 Dose: 100 mls/hr Ondansetron HCl (Ondansetron Inj 2 Mg/Ml Inj 2 Ml) 4 mg IVP Q6H PRN; Protocol PRN Reason: NAUSEA OR VOMITING Stop: 12/25/24 22:12 Oxycodone/Acetaminophen (Oxycodone/Apap 5/325 Tablet) 1 tab PO Q6H PRN PRN Reason: PAIN SCALE 4-6 (Moderate Stop: 11/30/24 22:12 Pantoprazole Sodium (Pantoprazole Inj 40 Mg Vial) 40 mg IVP QDAY AMADO Stop: 12/26/24 08:59 Tamsulosin HCl (Tamsulosin Hcl 0.4 Mg Capsule) 0.4 mg PO QDAY AMADO Stop: 12/26/24 08:59 Discontinued Medications Meropenem 1,000 mg/ Sodium (Chloride) 50 mls @ 100 mls/hr IV X1 ONE Stop: 11/25/24 20:33 Last Infusion: 11/25/24 21:22 Dose: Infused Lactated Ringer's (Lactated Ringers) 1,000 mls @ 999 mls/hr IV .Q1H1M ONE Stop: 11/25/24 21:33 Last Infusion: 11/25/24 22:25 Dose: Infused Lactated Ringer's (Lactated Ringers) 1,000 mls @ 999 mls/hr IV .Q1H1M ONE Stop: 11/25/24 22:32 Last Admin: 11/25/24 21:49 Dose: 999 mls/hr Lactated Ringer's (Lactated Ringers) 500 mls @ 999 mls/hr IV .Q31M ONE Stop: 11/25/24 22:03 Last Infusion: 11/25/24 22:21 Dose: Infused Morphine Sulfate (Morphine Sulf Inj 4 Mg/Ml Vial) 4 mg IVP X1 ONE Stop: 11/25/24 20:55 Last Admin: 11/25/24 21:02 Dose: 4 mg Ondansetron HCl (Ondansetron Inj 2 Mg/Ml Inj 2 Ml) 4 mg IVP X1 ONE; Protocol Stop: 11/25/24 20:33 Last Admin: 11/25/24 20:51 Dose: 4 mg Assessment & Plan Plan Left this is a 49-year-old male PMHx of recurrent kidney stones presenting to the ED with bilateral flank pain, nausea and vomiting. Sepsis UTI Complicated UTI Hx ESBL UTI Left renal calculi, recurrent kidney stones Lactic acidosis Presenting with bilateral flank pain, chill and dysuria. Met SIRS criteria with fever, leukocytosis, and tachycardia and endorgan damage i.e. lactic acidosis. UA showed UTI. CT abdomen showed 2 mm nonobstructive left renal calculi with perinephric stranding, cystitis pattern, moderate prostamegaly, no hydronephrosis bilaterally. Additionally, CT redemonstrated calcified gallbladder wall seen on previous admission. He presented with similar symptoms earlier this year with UA growing ESBL UTI, MEROPENEM was previously initiated per ID recommendations. He received adequate fluid bolus of 2.5 L per sepsis protocol. Currently afebrile, tachycardia resolved. ? Continue MEROPENEM ? Continue NS maintenance at 100 cc/H ? Continue TAMSULOSIN ? Pending urine and blood culture ? Trending lactic acid ? Will need outpatient workup for recurrent kidney stones ? Pain control Hypophosphatemia Phosphorus 2.2 on admission, likely malnutrition. ? Repleted ? Replete as needed Mild hypoosmolar hyponatremia Sodium 135, likely poor intake. ? Anticipate correction with NS and NEUTRA-PHOS as above ? Daily labs Health maintenance Diet: Regular diet GI prophylaxis: PROTONIX DVT prophylaxis: HEPARIN subcu Antibiotics: MEROPENEM CODE STATUS: Full code Disposition: Admitted for complicated UTI Case was discussed with attending physician, Dr. Prince. Melissa Aldridge DO PGY II This document was transcribed using voice recognition technology. Minor inaccuracies may be present. Attending Provider Attestation/Addendum I have examined the patient, reviewed labs and imaging findings, discussed the case with the resident(s), and reviewed entered orders. I agree with the plan of care as outlined in this note, with these additional summaries/recommendations: 49-year-old male with past medical history of recurrent nephrolithiasis complicated by UTI presents to the ED with chief complaint of bilateral flank pain that has been worsening with associated fevers and chills and nausea vomiting. CT scan showed bilateral nephrolithiasis with small stones less than 5 mm and bilateral pyelonephritis. He will be admitted for sepsis secondary to pyelonephritis with IV antibiotic therapy. Previous cultures show ESBL so we will place patient on meropenem. Piyush Prince MD
[2024-11-25 23:08] VITALS: BMI 25.7
[2024-11-25 23:55] LABS: Reflex Lactate? Y
[2024-11-26] VITALS (10 sets, daily range): BP systolic 104–140; BP diastolic 64–85; PULSE 89–101; RESP 16–20; TEMP 37.2–39.4; O2SAT 91–95
[2024-11-26 00:38] LABS: Lactic Acid, 3 HR 1.4 mMol/L (0.4-2.0)
[2024-11-26] MEDS: NAPH,KPH MBDB 1 PACKET (1.5 GM) PO (00:51)
[2024-11-26] MEDS: ACETAMINOPHEN 325 MG TABLET 650 MG PO ×2 (04:51→11:32)
--- NOTE | 2024-11-26 04:54 | PC.NURSE ---
yue to give norco and tylenol together per Dr. Aldridge.
--- NOTE | 2024-11-26 04:55 | PC.NURSE ---
Pt has a fever of 103, Dr. Aldridge was made aware. tylenol given, cooling measures activated.
[2024-11-26 05:42] LABS: Basophils # (Auto) 0.1 Thou/mm3 (0.0-0.2); Basophils % (Auto) 0 % (0-2.5); Eosinophils # (Auto) 0.0 Thou/mm3 (0.0-0.5); Eosinophils % (Auto) 0 % (0-10); Hematocrit 40.5 % (41.0-53.0); Hemoglobin 13.7 g/dL (13.5-16.0); Immature Granulocytes Auto 0.11 Thou/mm3 (0.00-0.00); Lymphocytes # (Auto) 2.5 Thou/mm3 (1.0-4.8); Lymphocytes % (Auto) 11 % (10-50); Mean Corpuscular HGB Conc 33.8 g/dl (31.0-37.0); Mean Corpuscular Hemoglobin 31.7 pg (25.0-35.0); Mean Corpuscular Volume 94 fL (80-100); Monocytes # (Auto) 2.5 Thou/mm3 (0.0-0.8); Monocytes % (Auto) 10 % (0-12); Neutrophils # (Auto) 18.7 Thou/mm3 (1.8-7.7); Neutrophils % (Auto) 78 % (37-80); Nucleated Red Blood Cell # 0.00 Thou/mm3 (0.00-0.00); Nucleated Red Blood Cell % 0 /100 WBC (0); Platelet Count 209 Thou/mm3 (140-440); RDW Standard Deviation 43.6 fL (35.1-43.9); Red Blood Count 4.32 Miln/mm3 (4.50-5.90); White Blood Count 23.9 Thou/mm3 (3.8-10.6)
[2024-11-26 06:34] LABS: Alanine Aminotransferase 39 U/L (10-49); Albumin, Serum 3.9 gm/dL (3.5-5.0); Albumin/Globulin Ratio 1.6 (1.2-2.2); Alkaline Phosphatase 78 U/L (46-116); Anion Gap 10 (7-16); Aspartate Amino Transferase 41 U/L (0-34); BUN/Creatinine Ratio 7 Ratio (12-20); Bilirubin,Total 1.0 mg/dL (0.3-1.2); Blood Urea Nitrogen 6 mg/dL (9-23); Calcium 8.7 mg/dL (8.3-10.6); Calcium (Corrected) 8.8 mg/dL (8.5-10.1); Carbon Dioxide 27.3 mMol/L (20.0-31.0); Chloride 99 mMol/L (98-107); Creatinine (Component) 0.9 mg/dL (0.6-1.3); Estimated Creatinine Clearance 100.4 mL/min (>60); Globulin 2.4 gm/dL (2.3-3.5); Glucose 110 mg/dL (74-106); Magnesium 1.5 mg/dL (1.6-2.6); Osmolality,Calculated 270 (275-295); Phosphorous 2.4 mg/dL (2.4-5.1); Potassium 3.3 mMol/L (3.4-5.1); Sodium 136 mMol/L (136-145); Total Protein 6.3 gm/dL (5.7-8.2); eGFR > 60 See Note
[2024-11-26] MEDS: SODIUM CHLORIDE 0.9% 1000 ML 1,000 ML 100 ML IV ×2 (08:15→17:50)
[2024-11-26] MEDS: HEPARIN SOD INJ 5000 UNIT/ML VIAL SC ×2 (08:15→20:57)
[2024-11-26] MEDS: TAMSULOSIN HCL 0.4 MG CAPSULE PO (08:16)
[2024-11-26] MEDS: POTASSIUM CHLORIDE 10% 20 MEQ/15 ML UDC 40 MEQ PO (09:51)
[2024-11-26] MEDS: Magnesium Sulfate 2 GM Ivpb 2 GM/50 ML BAG IV ×2 (09:51→11:27)
--- NOTE | 2024-11-26 10:51 | PC.SS ---
Patient is alert/oriented. Patient was able to verify demographics. Patient is from home and resides with a friend. Patient is independent with ADL'ls. No DME. Patient states his friend transports him to appointments. Patient admitted for UtI. PCP: YEVGENIY a few months ago for primary care. Pharmacy: [facility]. D/c plan is to return home. No further d/c needs. Alt medical decison maker: FriendSusan [phone]
--- NOTE | 2024-11-26 11:45 | ECHO_ITS ---
Transthoracic Echo Report Ht (in): 69 Wt (lb): 174 Exam Location: Echo Lab Status: Inpatient Pourer: Flaca Carter Indications: Procedure Performed: BP: 123 / 70 HR: 89 Technical Quality: Technically difficult study MEASUREMENTS (Male / Female) Normal Values 2D ECHO LV Diastolic Diameter PLAX 4.7 cm 4.2 - 5.9 / 3.9 - 5.3 cm LV Systolic Diameter PLAX 3.4 cm IVS Diastolic Thickness 0.5 cm 0.6 - 1.0 / 0.6 - 0.9 cm LVPW Diastolic Thickness 0.9 cm 0.6 - 1.0 / 0.6 - 0.9 cm LV Relative Wall Thickness 0.3 LVOT Diameter 2.0 cm LV Ejection Fraction MOD BP 59.3 % >= 55 % LV Cardiac Index MOD BP 2758.9 cm?/min?m? LV Ejection Fraction MOD 4C 57.0 % LV Cardiac Index MOD 4C 2704.7 cm?/min?m? LV Ejection Fraction 4C AL 58.7 % LV Cardiac Index 4C AL 2910.5 cm?/min?m? LV Ejection Fraction MOD 2C 62.4 % LV Cardiac Index MOD 2C 2813.1 cm?/min?m? LV Ejection Fraction 2C AL 63.5 % LV Cardiac Index 2C AL 2901.3 cm?/min?m? LA Volume Index 20.1 cm?/m? 16 - 28 cm?/m? M-MODE Aortic Root Diameter MM 3.2 cm LA Systolic Diameter MM 2.6 cm LA Ao Ratio MM 0.8 AV Cusp Separation MM 2.0 cm DOPPLER AV Peak Velocity 112.0 cm/s AV Peak Gradient 5.0 mmHg AV Mean Gradient 2.0 mmHg AV Velocity Time Integral 18.9 cm LVOT Peak Velocity 99.8 cm/s LVOT Peak Gradient 4.0 mmHg LVOT Velocity Time Integral 19.3 cm LVOT Cardiac Index 2737.8 cm?/min?m? AV Area Cont Eq vti 3.2 cm? AV Area Cont Eq pk 2.8 cm? MV Area PHT 5.2 cm? Mitral E Point Velocity 70.8 cm/s Mitral A Point Velocity 60.1 cm/s Mitral E to A Ratio 1.2 LV E' Lateral Velocity 9.8 cm/s Mitral E to LV E' Lateral Ratio 7.2 LV E' Septal Velocity 7.6 cm/s Mitral E to LV E' Septal Ratio 9.3 PV Peak Velocity 97.7 cm/s PV Peak Gradient 3.9 mmHg FINDINGS Left Ventricle Normal left ventricular size, wall thickness, systolic function with no obvious regional wall motion abnormalities. Normal left ventricular diastolic filling pattern for age. The ejection fraction is visually estimated at 55-60 %. Right Ventricle The right ventricle is normal in size and systolic function. Left Atrium The left atrium is normal by two-dimensional, color flow and Doppler imaging with no structural abnormalities, no thrombus formation present. Right Atrium The right atrium is normal by two-dimensional imaging, color flow and Doppler imaging with no structural abnormalities, no thrombus formation present. Atrial Septum The interatrial septum appears normal with no evidence of a shunt. Aorta The aorta is normal by two-dimensional, color flow and Doppler interrogation. Mitral Valve The mitral valve is normal by two-dimensional, color flow and Doppler interrogation. Trace mitral regurgitation. Aortic Valve The aortic valve is trileaflet and normal by two-dimensional, color flow and Doppler interrogation. There is no significant aortic valve regurgitation. Tricuspid Valve The tricuspid valve is normal by two-dimensional, color flow and Doppler interrogation. There is trace tricuspid valve regurgitation. Pulmonic Valve The pulmonic valve is not well visualized. There is no significant pulmonic valve regurgitation. Vessels The pulmonary artery appears normal. The inferior vena cava pulmonary and hepatic veins appear normal. Pericardium The pericardium is normal by two-dimensional imaging. There is no significant pericardial effusion. CONCLUSIONS Indication: SOB Normal LV size and wall thickness. Normal LV diastolic function. Estimated EF at 55-60 %. Normal RV systolic function. Mildly dilated RV. RVSP could not measured accurately due to inadequate TR. Trace MR and TR. No pericardial effusion. Michael Daigle (Electronically Signed) Final Date: 27 November 2024 04:28
[2024-11-26 11:46] LABS: Potassium 3.4 mMol/L (3.4-5.1)
[2024-11-26] MEDS: MEROPENEM INJ 1,000 MG in SODIUM CHLORIDE 0.9% (Popper) 50 ML 100 MG IV (12:39)
--- NOTE | 2024-11-26 12:55 | ESPR_ITS ---
<Statement entered by Nirav Cabrera MD - 11/26/24 17:37> Overnight admission. Seen and examined at bedside and patient endorses feeling fevers and chills with associated back pain. Noted to have a fever of 103 ?F at 4 in the morning and again temperature of 102.3 ?F at 4 PM. Antibiotic switched for meropenem to Zosyn per ID who is following. Urology also consulted but unable to follow. Otherwise, vital signs stable, WBC still elevated, K 3.3 and repleted, magnesium 1.5 and repleted, renal function within normal limits. Urine culture and blood cultures pending. ----- Note reviewed and agree with care plan as documented. Please refer to the note below for further details. Plan discussed with attending physician Dr. Anastasiia Cabrera MD PGY-2 Internal Medicine Documentation for date of: 11/26/24 Subjective Subjective Interval history: Overnight, pt became febrile up to 103+ F and tachycardic up to 104. Sepsis alert was called at 0400, pt received fluid bolus and tylenol w/ cooling blanket. This morning, pt appears to be in mild distress. Reports ongoing suprapubic, flank, genital region pain 6/10, sharp, nonradiating, provoked by urination, states this is improving from 10/10 on admission. He endorses associated fever, chills, dysuria, nausea, denies SOB, frequency, urgency, chest pain, vomiting, or diarrhea. Per pt, began noticing dysuria + pain 1 year ago, at which point he went to [facility] in [place] where he reports imaging was performed, a stone was found, and he was discharged w/ instructions to follow-up with outpatient but never did. He says he has had dysuria 'every other day' since. He also reports increasing exercise intolerance during this 1 year period. ROS negative except as noted above. Exam Vital Signs Temp Pulse Resp BP Pulse Ox O2 Del Method 98.9 F 98 18 104/64 92 L Room Air 11/26/24 08:00 11/26/24 08:00 11/26/24 08:00 11/26/24 08:00 11/26/24 08:00 11/26/24 08:00 Narrative Exam General: AOx3,appears mildly distressed, able to speak full sentences HEENT: NC/AT, mucous membranes moist, bilateral sclera anicteric Cardiovascular: regular rate and rhythm, S1/S2 present, no murmurs appreciated Pulmonary: clear to auscultation bilaterally, no rales/rhonchi/wheezes Abdominal: soft, 6/10 TTP b/l lower quadrants, suprapubic, b/l flanks. Non- distended, no rebound/guarding, normal bowel sounds present Musculoskeletal: normal ROM Skin: warm and dry, intact, no rashes Neuro: CN II-XII intact, no focal deficits Objective Labs 11/26/24 04:33 11/26/24 11:26 Labs: Laboratory Results - last 24 hr 11/25/24 11/25/24 11/26/24 20:43 21:34 00:31 WBC 23.2 H RBC 4.91 Hgb 15.3 Hct 45.5 MCV 93 MCH 31.2 MCHC 33.6 RDW Std Deviation 42.6 Plt Count 249 Neut % (Auto) 81 H Lymph % (Auto) 9 L [place] % (Auto) 10 Eos % (Auto) 0 Baso % (Auto) 0 Neut # (Auto) 18.7 H Lymph # (Auto) 2.0 [place] # (Auto) 2.3 H Eos # (Auto) 0.1 Baso # (Auto) 0.1 Immature Gran # (Auto) 0.12 H Absolute Nucleated RBC 0.00 Immature Gran % 1 H Nucleated RBC % 0 PT 10.5 INR 1.0 APTT 26.0 Sodium 135 L Potassium 3.6 Chloride 98 Carbon Dioxide 27.8 Anion Gap 9 BUN 7 L Creatinine 1.0 Estim Creat Clear Calc 90.3 eGFR > 60 BUN/Creatinine Ratio 7 L Glucose 109 H Calculated Osmolality 269 L Lactic Acid 2.4 H 1.4 Calcium 9.8 Corrected Calcium 9.8 Phosphorus 2.2 L Magnesium 1.6 Total Bilirubin 1.0 AST 27 ALT 20 Alkaline Phosphatase 88 Lactate Dehydrogenase 242 Troponin I < 0.002 B-Natriuretic Peptide < 20 Total Protein 8.1 Albumin 5.0 Globulin 3.1 Albumin/Globulin Ratio 1.6 Procalcitonin 0.28 Ur Collection Type Clean Catch Urine Color Lt-Yellow Urine Clarity Clear Urine pH 7.5 H Ur Specific [place] 1.022 Urine Protein Trace Urine Glucose (UA) Negative Urine Ketones Negative Urine Blood Negative Urine Nitrite Positive Urine Bilirubin Negative Urine Urobilinogen (Auto) Negative Ur Leukocyte Esterase Positive Urine RBC 5 H Urine WBC 14 H Ur Squamous Epith Cells 0 Urine Bacteria None Ur Culture Indicated? Yes 11/26/24 11/26/24 04:33 11:26 WBC 23.9 H RBC 4.32 L Hgb 13.7 Hct 40.5 L MCV 94 MCH 31.7 MCHC 33.8 RDW Std Deviation 43.6 Plt Count 209 D Neut % (Auto) 78 Lymph % (Auto) 11 [place] % (Auto) 10 Eos % (Auto) 0 Baso % (Auto) 0 Neut # (Auto) 18.7 H Lymph # (Auto) 2.5 [place] # (Auto) 2.5 H Eos # (Auto) 0.0 Baso # (Auto) 0.1 Immature Gran # (Auto) 0.11 H Absolute Nucleated RBC 0.00 Immature Gran % 1 H Nucleated RBC % 0 PT INR APTT Sodium 136 Potassium 3.3 L 3.4 Chloride 99 Carbon Dioxide 27.3 Anion Gap 10 BUN 6 L Creatinine 0.9 Estim Creat Clear Calc 100.4 eGFR > 60 BUN/Creatinine Ratio 7 L Glucose 110 H Calculated Osmolality 270 L Lactic Acid Calcium 8.7 Corrected Calcium 8.8 Phosphorus 2.4 Magnesium 1.5 L Total Bilirubin 1.0 AST 41 H ALT 39 Alkaline Phosphatase 78 Lactate Dehydrogenase Troponin I B-Natriuretic Peptide Total Protein 6.3 Albumin 3.9 D Globulin 2.4 Albumin/Globulin Ratio 1.6 Procalcitonin Ur Collection Type Urine Color Urine Clarity Urine pH Ur Specific [place] Urine Protein Urine Glucose (UA) Urine Ketones Urine Blood Urine Nitrite Urine Bilirubin Urine Urobilinogen (Auto) Ur Leukocyte Esterase Urine RBC Urine WBC Ur Squamous Epith Cells Urine Bacteria Ur Culture Indicated? Quality Measures Quality Measures none Assessment & Plan Assessment Current Active Medications: Generic Name Dose Route Start Last Admin Trade Name Freq PRN Reason Stop Dose Admin Acetaminophen 1,000 mg 11/26/24 11:46 Acetaminophen 500 Mg Tablet PO 12/25/24 22:12 Q6H PRN Fever >99.9 Hydrocodone Bitart/Acetaminophen 1 tab 11/25/24 22:13 11/26/24 12:47 Hydrocodone/Apap 10/325 Tab PO 11/30/24 22:12 1 tab Q4HR PRN Administration PAIN SCALE 7-10 (Severe Heparin Sodium (Porcine) 5,000 unit 11/26/24 09:00 11/26/24 08:15 Heparin Sod Inj 5000 Unit/Ml Vial SC 12/10/24 08:59 5,000 unit BID AMADO Administration Sodium Chloride 1,000 mls @ 100 mls/hr 11/25/24 22:15 11/26/24 08:15 Ns IV 12/25/24 22:14 100 mls/hr .Q10H AMADO Administration Ondansetron HCl 4 mg 11/25/24 22:13 Ondansetron Inj 2 Mg/Ml Inj 2 Ml IVP 12/25/24 22:12 Q6H PRN NAUSEA OR VOMITING Protocol Oxycodone/Acetaminophen 1 tab 11/25/24 22:13 Oxycodone/Apap 5/325 Tablet PO 11/30/24 22:12 Q6H PRN PAIN SCALE 4-6 (Moderate Tamsulosin HCl 0.4 mg 11/26/24 09:00 11/26/24 08:16 Tamsulosin Hcl 0.4 Mg Capsule PO 12/26/24 08:59 0.4 mg QDAY AMADO Administration Plan 49-year-old male PMHx of recurrent kidney stones presenting to the ED with bilateral flank pain, nausea and vomiting. Notably pt admitted 06/2024 for similar sx, found to have 4mm renal calculus + UTI growing ESBL, DC'd on bactrim but lost to FU. Sepsis UTI (resolved) Complicated UTI Hx ESBL UTI Left renal calculi, recurrent kidney stones Lactic acidosis (resolved) Presenting with bilateral flank pain, chill and dysuria. Met SIRS criteria with fever, leukocytosis, and tachycardia and endorgan damage i.e. lactic acidosis. UA showed UTI. CT abdomen showed 2 mm nonobstructive left renal calculi with perinephric stranding, cystitis pattern, moderate prostamegaly, no hydronephrosis bilaterally. Additionally, CT redemonstrated calcified gallbladder wall seen on previous admission. He presented with similar symptoms earlier this year with UA growing ESBL UTI, MEROPENEM was previously initiated per ID recommendations. He received adequate fluid bolus of 2.5 L per sepsis protocol. Currently afebrile, tachycardia resolved. Lactic acid today WNL. ? S/p IV Meropenem x1 in ED. Will start Meropenem 1000mg in NaCl 50mls @ 100mls/hr Q8. ? Continue NS maintenance at 100 cc/H ? Consulted Urology Dr. Bal, marques. Per recs will continue TAMSULOSIN + FINASTERIDE, no further management, instructions for outpatient workup of recurrent stones. ? Pending urine and blood culture ? Pain control Hypophosphatemia Hypokalemia Hypomagnesemia ? Repleted ? Replete as needed Mild hypoosmolar hyponatremia Sodium 135, likely poor intake. ? Anticipate correction with NS and NEUTRA-PHOS as above ? Daily labs Methamphetamine Use Disorder Per pt has been using Meth daily for several months to a year. Also incidentally mentions increased intolerance/SOB when performing previously comfortable activities, overall concerning for component of HF. - Order Echocardiogram - Will consult [facility]: Disposition: Cont abx + finasteride/flomax to manage stones + septic UTI. Fluids: NS Diet: no restriction DVT prophylaxis: Heparin 5k BID GI prophylaxis: IV Protonix 40mg BID CODE STATUS: full code ----- Plan discussed with attending physician Dr. Anastasiia Ram, Medical Student [employer] Attending Provider Attestation/Addendum I attest that I was physically present for the evaluation, physical examination, lab and imaging review of the patient with the residents. I discussed the case with the residents and agree with the findings and plans of care as documented above. Katarina Laurent MD
--- NOTE | 2024-11-26 14:42 | ESPR_ITS ---
Subjective Subjective Interval history: hx as noted. pt pleasant but not an eager historian today. just admitted last night. prior stone passage noted. no urology f/u noted. ct abd benign and creat ok. Exam Vital Signs Temp Pulse Resp BP Pulse Ox O2 Del Method 99.2 F 101 H 19 140/80 H 91 L Room Air 11/26/24 12:00 11/26/24 12:00 11/26/24 12:00 11/26/24 12:00 11/26/24 12:00 11/26/24 12:00 Narrative Exam stated abd and back tenderness to palpation. rest of exam benign Objective - Internal Medicine Labs 11/26/24 04:33 11/26/24 11:26 Labs: Laboratory Results - last 24 hr 11/25/24 11/25/24 11/26/24 20:43 21:34 00:31 WBC 23.2 H RBC 4.91 Hgb 15.3 Hct 45.5 MCV 93 MCH 31.2 MCHC 33.6 RDW Std Deviation 42.6 Plt Count 249 Neut % (Auto) 81 H Lymph % (Auto) 9 L [place] % (Auto) 10 Eos % (Auto) 0 Baso % (Auto) 0 Neut # (Auto) 18.7 H Lymph # (Auto) 2.0 [place] # (Auto) 2.3 H Eos # (Auto) 0.1 Baso # (Auto) 0.1 Immature Gran # (Auto) 0.12 H Absolute Nucleated RBC 0.00 Immature Gran % 1 H Nucleated RBC % 0 PT 10.5 INR 1.0 APTT 26.0 Sodium 135 L Potassium 3.6 Chloride 98 Carbon Dioxide 27.8 Anion Gap 9 BUN 7 L Creatinine 1.0 Estim Creat Clear Calc 90.3 eGFR > 60 BUN/Creatinine Ratio 7 L Glucose 109 H Calculated Osmolality 269 L Lactic Acid 2.4 H 1.4 Calcium 9.8 Corrected Calcium 9.8 Phosphorus 2.2 L Magnesium 1.6 Total Bilirubin 1.0 AST 27 ALT 20 Alkaline Phosphatase 88 Lactate Dehydrogenase 242 Troponin I < 0.002 B-Natriuretic Peptide < 20 Total Protein 8.1 Albumin 5.0 Globulin 3.1 Albumin/Globulin Ratio 1.6 Procalcitonin 0.28 Ur Collection Type Clean Catch Urine Color Lt-Yellow Urine Clarity Clear Urine pH 7.5 H Ur Specific [place] 1.022 Urine Protein Trace Urine Glucose (UA) Negative Urine Ketones Negative Urine Blood Negative Urine Nitrite Positive Urine Bilirubin Negative Urine Urobilinogen (Auto) Negative Ur Leukocyte Esterase Positive Urine RBC 5 H Urine WBC 14 H Ur Squamous Epith Cells 0 Urine Bacteria None Ur Culture Indicated? Yes 11/26/24 11/26/24 04:33 11:26 WBC 23.9 H RBC 4.32 L Hgb 13.7 Hct 40.5 L MCV 94 MCH 31.7 MCHC 33.8 RDW Std Deviation 43.6 Plt Count 209 D Neut % (Auto) 78 Lymph % (Auto) 11 [place] % (Auto) 10 Eos % (Auto) 0 Baso % (Auto) 0 Neut # (Auto) 18.7 H Lymph # (Auto) 2.5 [place] # (Auto) 2.5 H Eos # (Auto) 0.0 Baso # (Auto) 0.1 Immature Gran # (Auto) 0.11 H Absolute Nucleated RBC 0.00 Immature Gran % 1 H Nucleated RBC % 0 PT INR APTT Sodium 136 Potassium 3.3 L 3.4 Chloride 99 Carbon Dioxide 27.3 Anion Gap 10 BUN 6 L Creatinine 0.9 Estim Creat Clear Calc 100.4 eGFR > 60 BUN/Creatinine Ratio 7 L Glucose 110 H Calculated Osmolality 270 L Lactic Acid Calcium 8.7 Corrected Calcium 8.8 Phosphorus 2.4 Magnesium 1.5 L Total Bilirubin 1.0 AST 41 H ALT 39 Alkaline Phosphatase 78 Lactate Dehydrogenase Troponin I B-Natriuretic Peptide Total Protein 6.3 Albumin 3.9 D Globulin 2.4 Albumin/Globulin Ratio 1.6 Procalcitonin Ur Collection Type Urine Color Urine Clarity Urine pH Ur Specific [place] Urine Protein Urine Glucose (UA) Urine Ketones Urine Blood Urine Nitrite Urine Bilirubin Urine Urobilinogen (Auto) Ur Leukocyte Esterase Urine RBC Urine WBC Ur Squamous Epith Cells Urine Bacteria Ur Culture Indicated? Assessment & Plan A&P Narrative uti vs stones hx of partial obstruction and renal stones will use zosyn instead of merrem and f/u sunday if cx neg, then role of abx absent. Time Spent With Patient Time: Total time spent is greater than 50% in coordination of care (as documented) at patient's floor/unit and/or counseling patient:
--- NOTE | 2024-11-26 15:56 | PC.SS ---
rounding note: Patient remains on i.v. antibiotics. D/c plan to return home
--- NOTE | 2024-11-26 17:07 | ESCONSULT_ITS ---
RE: RENEE ALFARO : 1975 DATE OF CONSULTATION: 11/26/2024 REFERRING PHYSICIAN: Dr. Prince. REASON FOR CONSULTATION: Apparent UTI. HISTORY OF PRESENT ILLNESS: The patient is an unfortunate 49-year-old male I saw previously by June of this year. I have seen him now because of possible pyelonephritis, but he reports some problems with voiding and urination, but urine culture and blood in the urine are pending. They were obtained late last night. White count is high, but it is trending favorably. It went up previously and was high. It was not repeated. Urinalysis shows relatively few white cells just 14 white cells and 5 red cells. This is a relatively small number, but the lab here does urine cultures on everybody regardless. He does report he may have some prostate symptoms, so if we want to treat him and he has negative cultures, we want to treat him for prostatitis, we may have to go off prior cultures. This is the only thing we have. It is not ideal, but we have to do the best with what we have got. His exam shows him to have some mild abdominal tenderness and some mild to moderate flank tenderness bilaterally. His rest of his exam is benign. His urine this admit is pending. RECOMMENDATIONS: I am going to check on him again Sunday and see how he is doing. If his cultures are negative and his symptoms have resolved, we may decide what to do with antibiotics at that time. His renal function is preserved, so unless there is no obvious obstruction on imaging, so hopefully we can transition to oral therapy or get him off antibiotics entirely by Sunday. DT: 14:54:29 TT: 16:36:00 Ref: [id number] - TID: [id number] MTDD
[2024-11-26 17:18] LABS: Amphetamine/Methamp Scrn,U Positive (Negative); Barbiturate Screen,Urine Negative (Negative); Benzodiazepines Screen,Urine Negative (Negative); Benzoylecgonine Screen, Ur Negative (Negative); Fentanyl Screen,Urine Negative (Negative); Opiate Screen,Urine Positive (Negative); THC Screen,Urine Negative (Negative)
[2024-11-26] MEDS: ACETAMINOPHEN 500 MG TABLET 1000 MG PO (18:37)
--- NOTE | 2024-11-26 19:11 | ESCONSULT_ITS ---
RE: RENEE ALFARO : 1975 DATE OF CONSULTATION: 11/26/2024 CHIEF COMPLAINT: 1. Abdominal pain. 2. BPH with urinary obstruction and LUTS. 3. UTI. 4. Prostatitis. 5. 2 mm nonobstructive stone left kidney. HISTORY OF PRESENT ILLNESS: This is a 49-year-old gentleman. This patient has a history of recurrent kidney stones in the past. The patient came to the emergency room with abdominal pain, nausea, and vomiting. Onset of the pain was sudden and he had nausea, vomiting, mostly gastric contents content. The patient has been taking analgesics for pain without improvement. This is [id number]-[id number] medication. No fever. The patient had similar episode 3 months ago and UTI a urine culture positive. He was treated with Bactrim. The patient did not follow up with urologist for his stone disease in the past. PAST MEDICAL HISTORY: As above. PAST SURGICAL HISTORY: None. MEDICATIONS: None. ALLERGIES: NO KNOWN ALLERGY. FAMILY HISTORY: Noncontributory. SOCIAL HISTORY: Current methamphetamine user. PHYSICAL EXAMINATION: GENERAL: Condition is satisfactory. Orientation x3. The patient is not in acute distress. HEENT: Normocephalic and atraumatic. Eyes: No anemia or jaundice. NECK: Supple. Trachea is central. Thyroid is not enlarged. ABDOMEN: No masses. Liver, spleen, kidney not palpable. No CVA tenderness. VARIOUS LABS: WBC is 23.2, hemoglobin is 15.3, hematocrit 45.5. Serum sodium 135, creatinine is 1.0, BUN is 7. IMPRESSION: 1. BPH with urinary obstruction and LUTS. 2. History of stone disease. 3. Left kidney stone, 2 mm, nonobstructive. PLAN: 1. Tamsulosin 0.4 mg p.o. daily. 2. Drink enough fluid so that he has urinary output of 2400 mL in 24 hours. 3. Strain all the urine. 4. Finasteride 5 mg p.o. daily. 5. Recommend followup with PCP. His urine culture is pending ordered by PCP and he should be treated according to the sensitivity with antibiotics by PCP follow-up appointment in my office is given. DT: 12:49:45 TT: 13:40:00 Ref: [id number] - TID: [id number] MTDD
--- NOTE | 2024-11-26 19:14 | ESCONSULT_ITS ---
<Statement entered by Adam Child MD - 11/28/24 08:57> pt seen with resident. all findings confirmed. see additional notes for details HPI Data of Consult Requesting Physician: Katarina Laurent MD Admitting Provider: Piyush Prince MD Attending Provider: aKtarina Laurent MD Primary Care Provider: Juan Carlos Acosta MD Consult Narrative History of present illness: The patient is a 49-year-old male with significant past medical history of recurrent kidney stones presented to ED on 11/25/2024 with chief complaint of bilateral flank pain associated with nausea and vomiting. The patient reported passing few small stones while passing urine on the same day. The patient also admitted subjective fever. The patient was recently discharged on 06/11/2024, when he grew ESBL UTI, sensitive to Bactrim. He admitted lower back pain, but denied any pain in perineum. Recent urinalysis revealed nitrite positive, leukocyte esterase positive, WBC 14, with no bacteria. The patient was admitted to hospital for further management of intractable pain secondary to nonobstructive left renal calculus of 2 mm, associated with perinephric stranding, and cystitis pattern. The patient also had moderate prostatomegaly of 4.6 cm. The patient denied any headache, chest pain, SOB, abdominal pain. During admission patient was started on meropenem. During my evaluation, his vitals were fairly stable, but temperature of 102.3. White count 23.9, chemistry panel fairly stable, Pro-Jin 0.28. PMH: None Surgical history: None Medications: None Allergies: No known drug allergies Family history: Noncontributory Social history: Current methamphetamine user, denies alcohol or tobacco use Infectious disease consultation was done for further management of UTI, with previous culture growing ESBL. cc:: cc: Katarina Laurent MD Review of Systems Review of Systems Systems Reviewed: All systems reviewed, normal except as documented (As above) Exam Vital Signs Temp Pulse Resp BP Pulse Ox O2 Del Method 102.3 F H 89 17 123/70 91 L Room Air 11/26/24 18:37 11/26/24 16:00 11/26/24 16:00 11/26/24 16:00 11/26/24 16:00 11/26/24 16:00 Narrative Exam General: Well-nourished, cooperative gentleman, no acute distress, Alert and Oriented x 3 HEENT: Moist mucous membranes, oropharynx clear Neck: Supple, No masses, No JVD CVS: S1S2 Regular rate and rhythm, No murmurs, rubs or gallops Lungs: Clear to auscultation with no accessory use, no wheeze no rhonchi Abd: Soft, ND, +BS, no organomegaly, positive renal angle tenderness on left side, mild bilateral flank tenderness Ext: No edema, warm and well perfused Skin: No rash Psych: Appropriate mood and affect Results Labs 11/26/24 04:33 11/26/24 11:26 Labs: Short CBC 11/25/24 11/26/24 Range/Units 20:43 04:33 WBC 23.2 H 23.9 H (3.8-10.6) Thou/mm3 Hgb 15.3 13.7 (13.5-16.0) g/dL Hct 45.5 40.5 L (41.0-53.0) % Plt Count 249 209 D (140-440) Thou/mm3 BMP 11/25/24 11/26/24 11/26/24 20:43 04:33 11:26 Sodium 135 L 136 Potassium 3.6 3.3 L 3.4 Chloride 98 99 Carbon Dioxide 27.8 27.3 BUN 7 L 6 L Creatinine 1.0 0.9 Glucose 109 H 110 H Calcium 9.8 8.7 Cardiac Enzymes 11/25/24 Range/Units 20:43 Troponin I < 0.002 (0.0-0.045) ng/mL Liver Function 11/25/24 11/26/24 Range/Units 20:43 04:33 Total Bilirubin 1.0 1.0 (0.3-1.2) mg/dL AST 27 41 H (0-34) U/L ALT 20 39 (10-49) U/L Alkaline Phosphatase 88 78 (46-116) U/L Albumin 5.0 3.9 D (3.5-5.0) gm/dL Urine 11/25/24 Range/Units 21:34 Urine Color Lt-Yellow (Lt Yel-Yel) Urine Clarity Clear (Clear/Hazy) Urine pH 7.5 H (5.0-7.0) Ur Specific [place] 1.022 (1.001-1.035) Urine Protein Trace (Neg - Trace) Urine Glucose (UA) Negative (Negative) Quality Measures Quality Measures none Medications Home Medications and Allergies Allergies Allergy/AdvReac Type Severity Reaction Status Date / Time No Known Allergies Allergy Verified 11/25/24 20:16 Visit Medications Acetaminophen (Acetaminophen 500 Mg Tablet) 1,000 mg PO Q6H PRN PRN Reason: Fever >99.9 Stop: 12/25/24 22:12 Last Admin: 11/26/24 18:37 Dose: 1,000 mg Hydrocodone Bitart/Acetaminophen (Hydrocodone/Apap 10/325 Tab) 1 tab PO Q4HR PRN PRN Reason: PAIN SCALE 7-10 (Severe Stop: 11/30/24 22:12 Last Admin: 11/26/24 12:47 Dose: 1 tab Heparin Sodium (Porcine) (Heparin Sod Inj 5000 Unit/Ml Vial) 5,000 unit SC BID [facility] Stop: 12/10/24 08:59 Last Admin: 11/26/24 08:15 Dose: 5,000 unit Sodium Chloride (Ns) 1,000 mls @ 100 mls/hr IV .Q10H [facility] Stop: 12/25/24 22:14 Last Admin: 11/26/24 17:50 Dose: 100 mls/hr Piperacillin Sod/Tazobactam (Sod 4.5 gm/ Sodium Chloride) 100 mls @ 200 mls/hr IV Q8HR AMADO; Protocol Stop: 12/03/24 21:59 Ondansetron HCl (Ondansetron Inj 2 Mg/Ml Inj 2 Ml) 4 mg IVP Q6H PRN; Protocol PRN Reason: NAUSEA OR VOMITING Stop: 12/25/24 22:12 Oxycodone/Acetaminophen (Oxycodone/Apap 5/325 Tablet) 1 tab PO Q6H PRN PRN Reason: PAIN SCALE 4-6 (Moderate Stop: 11/30/24 22:12 Tamsulosin HCl (Tamsulosin Hcl 0.4 Mg Capsule) 0.4 mg PO QDAY AMADO Stop: 12/26/24 08:59 Last Admin: 11/26/24 08:16 Dose: 0.4 mg Discontinued Medications Acetaminophen (Acetaminophen 325 Mg Tablet) 650 mg PO Q6H PRN PRN Reason: PAIN SCALE 1-3 (mild Stop: 12/25/24 22:12 Last Admin: 11/26/24 11:32 Dose: 650 mg Acetaminophen (Acetaminophen 325 Mg Tablet) 650 mg PO Q6H PRN PRN Reason: Fever >100.4 Stop: 12/25/24 22:12 Last Admin: 11/26/24 04:51 Dose: 650 mg Meropenem 1,000 mg/ Sodium (Chloride) 50 mls @ 100 mls/hr IV X1 ONE Stop: 11/25/24 20:33 Last Infusion: 11/25/24 21:22 Dose: Infused Lactated Ringer's (Lactated Ringers) 1,000 mls @ 999 mls/hr IV .Q1H1M ONE Stop: 11/25/24 21:33 Last Infusion: 11/25/24 22:25 Dose: Infused Lactated Ringer's (Lactated Ringers) 1,000 mls @ 999 mls/hr IV .Q1H1M ONE Stop: 11/25/24 22:32 Last Infusion: 11/25/24 22:52 Dose: Infused Lactated Ringer's (Lactated Ringers) 500 mls @ 999 mls/hr IV .Q31M ONE Stop: 11/25/24 22:03 Last Infusion: 11/25/24 22:21 Dose: Infused Magnesium Sulfate (Magnesium Sulfate Ivpb) 2 gm in 50 mls @ 25 mls/hr IV X1 ONE Stop: 11/26/24 10:32 Last Admin: 11/26/24 09:51 Dose: 25 mls/hr Magnesium Sulfate (Magnesium Sulfate Ivpb) 2 gm in 50 mls @ 25 mls/hr IV X1 ONE Stop: 11/26/24 12:31 Last Admin: 11/26/24 11:27 Dose: 25 mls/hr Meropenem 1,000 mg/ Sodium (Chloride) 50 mls @ 100 mls/hr IV Q8HR AMADO Stop: 12/03/24 13:59 Meropenem 1,000 mg/ Sodium (Chloride) 50 mls @ 100 mls/hr IV Q8HR AMADO Stop: 12/03/24 11:39 Last Admin: 11/26/24 12:39 Dose: 100 mls/hr Morphine Sulfate (Morphine Sulf Inj 4 Mg/Ml Vial) 4 mg IVP X1 ONE Stop: 11/25/24 20:55 Last Admin: 11/25/24 21:02 Dose: 4 mg Ondansetron HCl (Ondansetron Inj 2 Mg/Ml Inj 2 Ml) 4 mg IVP X1 ONE; Protocol Stop: 11/25/24 20:33 Last Admin: 11/25/24 20:51 Dose: 4 mg Pantoprazole Sodium (Pantoprazole Inj 40 Mg Vial) 40 mg IVP QDAY AMADO Stop: 12/26/24 08:59 Last Admin: 11/26/24 08:16 Dose: 40 mg Potassium Chloride (Potassium Chloride 10% 20 Meq/15 Ml Udc) 40 meq PO X1 ONE Stop: 11/26/24 08:34 Last Admin: 11/26/24 09:51 Dose: 40 meq Potassium Chloride (Potassium Chloride 20 Meq Tabcr) 40 meq PO X1 ONE Stop: 11/26/24 17:37 Last Admin: 11/26/24 17:50 Dose: 40 meq Potassium Phos/Sodium Phos (Naph,[facility] Mbdb 1 Packet (1.5 Gm)) 1 packet PO X1 ONE Stop: 11/26/24 00:10 Last Admin: 11/26/24 00:51 Dose: 1 packet Assessment & Plan Plan The patient is a 49-year-old male with significant past medical history of recurrent kidney stones presented to ED on 11/25/2024 with chief complaint of bilateral flank pain associated with nausea and vomiting. The patient reported passing few small stones while passing urine on the same day. The patient also admitted subjective fever. Infectious disease consultation was done for further management of UTI, with previous culture growing ESBL. #Complicated UTI #Left nephrolithiasis The patient presented with bilateral flank pain, and UA was positive for UTI, urinalysis revealed nitrite positive, leukocyte esterase positive, WBC 14, with no bacteria. The patient was admitted to hospital for further management of intractable pain secondary to nonobstructive left renal calculus of 2 mm, associated with perinephric stranding, and cystitis pattern. The patient also had moderate prostatomegaly of 4.6 cm, white count 23.9, and developed fever of 102.3 - Switched meropenem to Zosyn - Follow-up on urine culture, and if urine culture is negative, antibiotics can be stopped - Appreciate urology consultation #Methamphetamine abuse disorder #Hypomagnesemia - Management deferred to primary hospitalist team Thank you for your opportunity to participate in this patient care. We will follow-up on this patient on Sunday again. The patient's management plan was discussed with my attending physician MD Juan Mercado MD, PGY3
[2024-11-26] MEDS: PIPER/TAZO INJ 4.5 GM in SODIUM CHLORIDE 0.9% (POP) 100 ML IV (20:57)
[2024-11-27] VITALS: BP 118/80; PULSE 79; RESP 17; TEMP 36.8; O2SAT 92
[2024-11-27] MEDS: SODIUM CHLORIDE 0.9% 1000 ML 1,000 ML 100 ML IV ×2 (03:56→13:51)
[2024-11-27 04:00] VITALS: BP 116/93; PULSE 87; RESP 17; TEMP 38.3; O2SAT 92
[2024-11-27] MEDS: PIPER/TAZO INJ 4.5 GM in SODIUM CHLORIDE 0.9% (POP) 100 ML IV ×2 (05:03→13:50)
[2024-11-27 05:06] VITALS: BP 136/81; PULSE 91; RESP 16; TEMP 36.9; O2SAT 95
[2024-11-27 05:52] LABS: Basophils # (Auto) 0.1 Thou/mm3 (0.0-0.2); Basophils % (Auto) 0 % (0-2.5); Eosinophils # (Auto) 0.0 Thou/mm3 (0.0-0.5); Eosinophils % (Auto) 0 % (0-10); Hematocrit 42.7 % (41.0-53.0); Hemoglobin 14.2 g/dL (13.5-16.0); Immature Granulocytes Auto 0.15 Thou/mm3 (0.00-0.00); Lymphocytes # (Auto) 1.7 Thou/mm3 (1.0-4.8); Lymphocytes % (Auto) 8 % (10-50); Mean Corpuscular HGB Conc 33.3 g/dl (31.0-37.0); Mean Corpuscular Hemoglobin 31.3 pg (25.0-35.0); Mean Corpuscular Volume 94 fL (80-100); Monocytes # (Auto) 2.3 Thou/mm3 (0.0-0.8); Monocytes % (Auto) 11 % (0-12); Neutrophils # (Auto) 16.4 Thou/mm3 (1.8-7.7); Neutrophils % (Auto) 79 % (37-80); Nucleated Red Blood Cell # 0.00 Thou/mm3 (0.00-0.00); Nucleated Red Blood Cell % 0 /100 WBC (0); Platelet Count 190 Thou/mm3 (140-440); RDW Standard Deviation 43.7 fL (35.1-43.9); Red Blood Count 4.54 Miln/mm3 (4.50-5.90); White Blood Count 20.7 Thou/mm3 (3.8-10.6)
[2024-11-27] MEDS: ONDANSETRON INJ 2 MG/ML INJ 2 ML 4 MG IVP (05:56)
[2024-11-27 06:19] LABS: Albumin, Serum 4.0 gm/dL (3.5-5.0); Anion Gap 6 (7-16); BUN/Creatinine Ratio 7 Ratio (12-20); Blood Urea Nitrogen 6 mg/dL (9-23); Calcium 8.5 mg/dL (8.3-10.6); Calcium (Corrected) 8.5 mg/dL (8.5-10.1); Carbon Dioxide 28.7 mMol/L (20.0-31.0); Chloride 101 mMol/L (98-107); Creatinine (Component) 0.9 mg/dL (0.6-1.3); Estimated Creatinine Clearance 100.4 mL/min (>60); Glucose 125 mg/dL (74-106); Magnesium 1.9 mg/dL (1.6-2.6); Osmolality,Calculated 270 (275-295); Phosphorous 1.6 mg/dL (2.4-5.1); Potassium 4.5 mMol/L (3.4-5.1); Sodium 136 mMol/L (136-145); eGFR > 60 See Note
[2024-11-27 08:00] VITALS: BP 123/80; PULSE 87; RESP 17; TEMP 36.8; O2SAT 95
[2024-11-27] MEDS: TAMSULOSIN HCL 0.4 MG CAPSULE PO (08:12)
[2024-11-27] MEDS: HEPARIN SOD INJ 5000 UNIT/ML VIAL SC (08:12)
[2024-11-27] MEDS: NAPH,KPH MBDB 1 PACKET (1.5 GM) 2 PACKET PO (09:24)
--- NOTE | 2024-11-27 11:41 | XR_ITS ---
Examination: Abdomen sonogram, Limited Date and time of exam: November 27, 2024, 1211 hours INDICATIONS: Calcified gallbladder wall on CT abdomen 11/25/2024 Technique: Real-time christianson scale transabdominal sonographic images of the upper abdomen obtained. Findings: Calcified gallbladder wall Gallbladder wall 0.3 cm no gallstones Common bile duct 0.4 cm Pancreatic head 2.7 cm Liver 14.9 cm Normal hepatopedal portal venous flow Patent IVC IMPRESSION: Porcelain gallbladder Recommend HIDA scan with ejection fraction follow-up
--- NOTE | 2024-11-27 11:43 | ESPR_ITS ---
<Statement entered by Nirav Cabrera MD - 11/27/24 22:31> Note reviewed and agree with care plan as documented. Please refer to the note below for further details. Plan discussed with attending physician Dr. Anastasiia Cabrera MD PGY-2 Internal Medicine Documentation for date of: 11/27/24 Subjective Subjective Interval history: Interval history: Yesterday pt became febrile up to 102.3 F ~1600 and again febrile up to 101 F this morning ~0400, managed w/ tylenol, norco, cooling blankets. This morning, pt appears to be in mild distress. Reports ongoing suprapubic, flank, genital region pain worsening to 7/10 (yesterday 08/12). He endorses associated fever, chills, dysuria, nausea now with episode of vomiting this morning and SOB, denies frequency, urgency, chest pain or diarrhea. ID and Uro consulted, following. ROS negative except as noted above. Exam Vital Signs Temp Pulse Resp BP Pulse Ox O2 Del Method O2 Flow Rate 98.2 F 87 17 123/80 95 Nasal Cannula 1 11/27/24 08:00 11/27/24 08:00 11/27/24 08:00 11/27/24 08:00 11/27/24 08:00 11/27/24 08:00 11/27/24 08:00 Narrative Exam General: AOx3, appears ill, able to speak full sentences HEENT: NC/AT, mucous membranes moist, bilateral sclera anicteric Cardiovascular: regular rate and rhythm, S1/S2 present, no murmurs appreciated Pulmonary: clear to auscultation bilaterally, no rales/rhonchi/wheezes Abdominal: soft, 6/10 TTP b/l lower quadrants, suprapubic, b/l flanks. Non- distended, no rebound/guarding, normal bowel sounds present Musculoskeletal: normal ROM Skin: warm and dry, intact, no rashes Neuro: CN II-XII intact, no focal deficits Objective Labs 11/27/24 05:35 11/27/24 05:35 Labs: Laboratory Results - last 24 hr 11/26/24 11/26/24 11/27/24 11:26 14:00 05:35 WBC 20.7 H RBC 4.54 Hgb 14.2 Hct 42.7 MCV 94 MCH 31.3 MCHC 33.3 RDW Std Deviation 43.7 Plt Count 190 Neut % (Auto) 79 Lymph % (Auto) 8 L [place] % (Auto) 11 Eos % (Auto) 0 Baso % (Auto) 0 Neut # (Auto) 16.4 H Lymph # (Auto) 1.7 [place] # (Auto) 2.3 H Eos # (Auto) 0.0 Baso # (Auto) 0.1 Immature Gran # (Auto) 0.15 H Absolute Nucleated RBC 0.00 Immature Gran % 1 H Nucleated RBC % 0 Sodium 136 Potassium 3.4 4.5 D Chloride 101 Carbon Dioxide 28.7 Anion Gap 6 L BUN 6 L Creatinine 0.9 Estim Creat Clear Calc 100.4 eGFR > 60 BUN/Creatinine Ratio 7 L Glucose 125 H Calculated Osmolality 270 L Calcium 8.5 Corrected Calcium 8.5 Phosphorus 1.6 L Magnesium 1.9 Albumin 4.0 Urine Opiates Screen Positive A Urine Fentanyl Screen Negative Ur Barbiturates Screen Negative U Amphetamin/Meth Scrn Positive A U Benzodiazepines Scrn Negative U Cocaine Metab Screen Negative U Marijuana (THC) Screen Negative Quality Measures Quality Measures none Assessment & Plan Assessment Current Active Medications: Generic Name Dose Route Start Last Admin Trade Name Freq PRN Reason Stop Dose Admin Acetaminophen 1,000 mg 11/26/24 11:46 11/26/24 18:37 Acetaminophen 500 Mg Tablet PO 12/25/24 22:12 1,000 mg Q6H PRN Administration Fever >99.9 Hydrocodone Bitart/Acetaminophen 1 tab 11/25/24 22:13 11/27/24 05:02 Hydrocodone/Apap 10/325 Tab PO 11/30/24 22:12 1 tab Q4HR PRN Administration PAIN SCALE 7-10 (Severe Finasteride 5 mg 11/27/24 11:45 Finasteride 5 Mg Tablet PO 12/27/24 11:44 QDAY AMADO Heparin Sodium (Porcine) 5,000 unit 11/26/24 09:00 11/27/24 08:12 Heparin Sod Inj 5000 Unit/Ml Vial SC 12/10/24 08:59 5,000 unit BID AMADO Administration Sodium Chloride 1,000 mls @ 100 mls/hr 11/25/24 22:15 11/27/24 03:56 Ns IV 12/25/24 22:14 100 mls/hr .Q10H AMADO Administration Piperacillin Sod/Tazobactam 100 mls @ 200 mls/hr 11/26/24 22:00 11/27/24 05:03 Sod 4.5 gm/ Sodium Chloride IV 12/03/24 21:59 200 mls/hr Q8HR AMADO Administration Protocol Ondansetron HCl 4 mg 11/25/24 22:13 11/27/24 05:56 Ondansetron Inj 2 Mg/Ml Inj 2 Ml IVP 12/25/24 22:12 4 mg Q6H PRN Administration NAUSEA OR VOMITING Protocol Oxycodone/Acetaminophen 1 tab 11/25/24 22:13 11/26/24 21:03 Oxycodone/Apap 5/325 Tablet PO 11/30/24 22:12 1 tab Q6H PRN Administration PAIN SCALE 4-6 (Moderate Tamsulosin HCl 0.4 mg 11/26/24 09:00 11/27/24 08:12 Tamsulosin Hcl 0.4 Mg Capsule PO 12/26/24 08:59 0.4 mg QDAY AMADO Administration Plan 49-year-old male PMHx of recurrent kidney stones presenting to the ED with bilateral flank pain, nausea and vomiting. Notably pt admitted 06/2024 for similar sx, found to have 4mm renal calculus + UTI growing ESBL, DC'd on bactrim but lost to FU. Sepsis UTI (resolved) Complicated UTI w/ evidence Cystitis + Prostatitis Hx ESBL UTI Left renal calculi, recurrent kidney stones Lactic acidosis (resolved) Ongoing bilateral flank pain, chill and dysuria, now nauseaous with vomiting. UA showed UTI. CT abdomen showed 2 mm nonobstructive left renal calculi with perinephric stranding, cystitis pattern, moderate prostamegaly, no hydronephrosis bilaterally. Additionally, CT redemonstrated calcified gallbladder wall seen on previous admission. He presented with similar symptoms earlier this year with UA growing ESBL UTI, MEROPENEM was previously initiated per ID recommendations. He received adequate fluid bolus of 2.5 L per sepsis protocol. Currently afebrile. Pt has had cyclical fevers after starting abx every 12 hours since yesterday, however spikes become lower and lower temperature. ? S/p IV Meropenem x1 in ED and x1 day Meropenem inpatient. ID consulted, appreciated. Per recs was swapped to IV Zosyn with plan to re-evaluate need for abx on 11/28/24. ? Continue NS maintenance at 100 cc/H ? Appreciate Urology Dr. Bal consult. Per recs will continue TAMSULOSIN + FINASTERIDE, instructions for outpatient workup of recurrent stones. ? Urine cx thus far negative, will repeat blood cx given recurrent fevers in setting of empiric abx. ? Pain control as needed. Calcified Gallbladder Patient does not have any RUQ pain or jaundice, this is possibly incidental finding. - Will order US RUQ Hypophosphatemia Hypokalemia Hypomagnesemia Phosphate 1.6 today ? Replete phos x2 Nutriphos packets ? Replete as needed Mild hypoosmolar hyponatremia Sodium normal after admission, initial hyponatremia mild and likely 2/2 poor intake. ? Daily labs Substance Use Disorder Per pt has been using Meth daily for several months to a year. Also incidentally mentions increased intolerance/SOB when performing previously comfortable activities, overall concerning for component of HF however latest Echo 11/27 showed normal LVEF - Consulted [facility] management: Disposition: Observing ongoing response to abx, pending ID recommendations Fluids: NaCl Diet: no restriction DVT prophylaxis: Heparin 5k SQ BID CODE STATUS: full code ----- Plan discussed with attending physician Dr. Anastasiia Ram, Medical Student [employer] Attending Provider Attestation/Addendum I attest that I was physically present for the evaluation, physical examination, lab and imaging review of the patient with the residents. I discussed the case with the residents and agree with the findings and plans of care as documented above. Patient seen and evaluated this morning at bedside. He had an episode of fever yesterday evening with temperature of 102.3, and this morning 101 ?F. Received Tylenol and cooling blankets. Patient continues to have some suprapubic, flank pain. He also have an episode of vomiting and nausea. Antibiotics have been changed to Zosyn from meropenem yesterday as recommended by ID. Patient seen by urology yesterday, recommended tamsulosin, finasteride and continuation of antibiotics. We will continue with IV Zosyn, if he develops another episode of fever, we will plan for switching antibiotics. Patient was found to have calcified gallbladder on abdominal imaging, does not have right upper quadrant pain, jaundice, we will obtain liver ultrasound. Noted to have phosphate of 1.6, repleted accordingly. WBC count has been downtrending. Katarina Laurent MD
[2024-11-27 12:00] VITALS: BP 123/80; PULSE 87; RESP 17; TEMP 36.8; O2SAT 95
[2024-11-27] MEDS: FINASTERIDE 5 MG TABLET PO (12:11)
[2024-11-27 16:00] VITALS: BP 141/80; PULSE 93; RESP 17; TEMP 37.7; O2SAT 94
--- NOTE | 2024-11-27 20:49 | EVENTNT_ITS ---
Documentation for date of: 11/27/24 Event Note Event Note: Alistair Choi, 49-year-old male, has decided to sign out against medical advice (AMA) after being explained the risks & benefits of leaving before medical clearance/discharge. The patient had the opportunity to ask questions a bout their condition which were answered to their satisfaction. They are aware that they may return for further care at any time as needed. ----- Plan discussed with attending physician Dr. Anastasiia Cabrera MD PGY-2 Internal Medicine
== END 2024-11-27 16:55 | disposition left against medical advice (07) | DRG 720 ==
LOC: SERX 22:16 → SERHOLD 22:58 → S3NX 11-26 05:59
PROVIDERS: Registered Nurse General Practice; Student in an Organized Health Care Education/Training Program; Admitting Provider Student in an Organized Health Care Education/Training Program; Emergency Provider Emergency Medicine; PCP Family Medicine; Visit Provider Student in an Organized Health Care Education/Training Program
DX: A41.9 Sepsis, unspecified organism (principal); Z87.891 Personal history of nicotine dependence; N39.0 Urinary tract infection, site not specified; N20.0 Calculus of kidney; E83.39 Other disorders of phosphorus metabolism; E87.1 Hypo-osmolality and hyponatremia; N41.3 Prostatocystitis; N10 Acute pyelonephritis; K82.8 Other specified diseases of gallbladder; E87.6 Hypokalemia; Z16.12 Extended spectrum beta lactamase (ESBL) resistance; E87.20 Acidosis, unspecified; N40.1 Benign prostatic hyperplasia with lower urinary tract symptoms; N13.8 Other obstructive and reflux uropathy; E83.42 Hypomagnesemia; F15.10 Other stimulant abuse, uncomplicated; Z87.442 Personal history of urinary calculi
CPT/HCPCS: 36415; 71045; 74176; 76705; 80053; 80069; 80307; 81001; 83605; 83615; 83735; 83880; 84100; 84132; 84145; 84484; 85025; 85610; 85730; 87040; 87086; 87491; 87591; 87661; 87811; 93005; 93306; 96361; 96365; 96375; 96376; 99284; J1644; J2185; J2270; J2405; J2470; J2543; J3475; J7030; J7050; J7120; A9270